=== PATIENT | male | born 1950 | race Caucasian/White ===

== ENCOUNTER 2017-02-19 16:20 | Emergency (ER) | payer MEDICARE ==
[~2017-02-19] VITALS: Ht 188 cm; Wt 113.5 kg
[~2017-02-19 16:20] MED LIST: ASPI325T PO; FOLI400T30 PO; GLUC10TA3 PO; LISI-587 PO; SIMV40TA PO; VITA10002 PO; VITA200017 PO
[2017-02-19 16:22] VITALS: BP 112/80; PULSE 104; RESP 24; TEMP 98.4; O2SAT 98
[2017-02-19] MEDS ORDERED: LISI10TA PO (16:48)
[2017-02-19] MEDS ORDERED: CHOL100025 CHEW (16:48)
[2017-02-19] MEDS ORDERED: ASPI325T PO (16:48)
[2017-02-19] MEDS ORDERED: GLIP10TA6 PO (16:48)
[2017-02-19 17:09] LABS: MEAN CORPUSCULAR HGB CONC 36.5 % (32.0-36.0)
--- NOTE | 2017-02-19 17:18 | PD ---
HPI Chief Complaint: GI Complaint Time Seen by Provider: 17:01 Travel History International Travel<30 days: No Contact w/Intl Traveler<30days: No Traveled to known affect area: No History of Present Illness HPI 66-year-old male complains of fever chills or generalized malaise . Patient states that the symptoms started 2 days ago. Patient denies any headache. Patient denies any neck pain. Patient denies any chest pain or shortness of breath. Patient states that he has occasionally dry cough. Patient denies any abdominal pain. Patient denies dysuria. Patient states that he has intermittent urinary frequency. Patient denies any back pain. Patient denies any focal weakness or numbness of extremity. Patient has history of CVA in 2013. Patient has history of diabetes and hyperlipidemia. Patient on aspirin 325 mg daily. PFSH Past Medical History Cancer: No Cardiovascular Problems: Yes High Cholesterol: Yes Cerebrovascular Accident: Yes (2012) Diabetes: Yes Patient Takes Glucophage: No Diminished Hearing: No Endocrine: Yes Gastrointestinal Disorders: No Genitourinary: No Hepatitis: No Hiatal Hernia: No Hypertension: Yes Immune Disorder: No Musculoskeletal: No Neurologic: Yes (STROKE , HAS SOME SPEECH DIFFICULTY) Psychiatric: No Reproductive: No Respiratory: No Immunizations Current: No Thyroid Disease: No Tetanus Vaccination: Never Vaccinated Past Surgical History Abdominal Surgery: Yes (APPY) Appendectomy: Yes Body Medical Devices: NONE Cardiac Surgery: No Ear Surgery: No Endocrine Surgery: No Eye Surgery: No Genitourinary Surgery: No Oral Surgery: No Pacemaker: No Thoracic Surgery: No Other Surgery: Yes (3RD L FOOT TOE AMPUTATION) Social History Alcohol Use: Yes (socially ) Tobacco Use: No Substance Use: No Allergies-Medications (Allergen,Severity, Reaction): Coded Allergies: No Known Allergies (Unverified , 02/19/17) Reported Meds & Prescriptions Reported Meds & Active Scripts Active Reported Vitamin D3 (Cholecalciferol) 1,000 Unit Chew 2,000 Units CHEW DAILY Lisinopril-Hctz 10-12.5 Mg Tab 1 Tab PO DAILY Aspirin 325 Mg Tab 325 Mg PO DAILY Glipizide 10 Mg Tab 10 Mg PO BIDAC Take 30 minutes before a meal Review of Systems General / Constitutional: Positive: Fever, Chills Eyes: No: Visual changes HENT: No: Headaches Cardiovascular: No: Chest Pain or Discomfort Respiratory: No: Shortness of Breath Gastrointestinal: No: Abdominal Pain Genitourinary: No: Dysuria Musculoskeletal: No: Pain Skin: No Rash Neurologic: No: Weakness Psychiatric: No: Depression Endocrine: No: Polydipsia Hematologic/Lymphatic: No: Easy Bruising Physical Exam Narrative GENERAL: Well-nourished, well-developed patient. SKIN: Focused skin assessment warm/dry. HEAD: Normocephalic. EYES: No scleral icterus. No injection or drainage. NECK: Supple, trachea midline. No JVD or lymphadenopathy. CARDIOVASCULAR: Regular rate and rhythm without murmurs, gallops, or rubs. RESPIRATORY: Breath sounds equal bilaterally. No accessory muscle use. GASTROINTESTINAL: Abdomen soft, non-tender, nondistended. MUSCULOSKELETAL: No cyanosis, or edema. BACK: Nontender without obvious deformity. No CVA tenderness. Neurologic exam normal. Data Data Last Documented VS Vital Signs Date Time Temp Pulse Resp B/P Pulse Ox O2 Delivery O2 Flow Rate FiO2 02/19/17 22:13 76 20 180/88 99 02/19/17 21:38 98.2 02/19/17 17:47 Room Air Orders Electrocardiogram (02/19/17 17:07) Complete Blood Count With Diff (02/19/17 17:07) Comprehensive Metabolic Panel (02/19/17 17:07) Creatine Kinase (Cpk) (02/19/17 17:07) Troponin I (02/19/17 17:07) Prothrombin Time / Inr (Pt) (02/19/17 17:07) Act Partial Throm Time (Ptt) (02/19/17 17:07) Blood Culture (02/19/17 17:07) Urinalysis - C+S If Indicated (02/19/17 17:07) Beta Hydroxybutyrate (Acetone) (02/19/17 17:07) Influenzae A/B Antigen (02/19/17 17:07) Chest, Single Ap (02/19/17 17:07) Iv Access Insert/Monitor (02/19/17 17:07) Ecg Monitoring (02/19/17 17:07) Oximetry (02/19/17 17:07) Sodium Chlor 0.9% 1000 Ml Inj (Ns 1000 M (02/19/17 17:45) Sodium Chlorid 0.9% 500 Ml Inj (Ns 500 M (02/19/17 19:30) Cath For Specimen (02/19/17 21:23) Sodium Chlor 0.9% 1000 Ml Inj (Ns 1000 M (02/19/17 21:45) Labs Laboratory Tests Test 02/19/17 02/19/17 17:30 21:30 White Blood Count 8.7 TH/MM3 Red Blood Count 4.39 MIL/MM3 Hemoglobin 13.8 GM/DL Hematocrit 37.6 % Mean Corpuscular Volume 85.8 FL Mean Corpuscular Hemoglobin 31.3 PG Mean Corpuscular Hemoglobin 36.5 % Concent Red Cell Distribution Width 12.6 % Platelet Count 213 TH/MM3 Mean Platelet Volume 6.4 FL Neutrophils (%) (Auto) 80.2 % Lymphocytes (%) (Auto) 9.6 % Monocytes (%) (Auto) 9.7 % Eosinophils (%) (Auto) 0.0 % Basophils (%) (Auto) 0.5 % Neutrophils # (Auto) 7.0 TH/MM3 Lymphocytes # (Auto) 0.8 TH/MM3 Monocytes # (Auto) 0.8 TH/MM3 Eosinophils # (Auto) 0.0 TH/MM3 Basophils # (Auto) 0.0 TH/MM3 CBC Comment AUTO DIFF Differential Comment AUTO DIFF CONFIRMED Platelet Estimate NORMAL Platelet Morphology Comment NORMAL Prothrombin Time 14.0 SEC Prothromb Time International 1.3 RATIO Ratio Activated Partial 35.7 SEC Thromboplast Time Sodium Level 128 MEQ/L Potassium Level 3.9 MEQ/L Chloride Level 95 MEQ/L Carbon Dioxide Level 23.0 MEQ/L Anion Gap 10 MEQ/L Blood Urea Nitrogen 19 MG/DL Creatinine 1.29 MG/DL Estimat Glomerular Filtration 56 ML/MIN Rate Random Glucose 179 MG/DL Calcium Level 8.3 MG/DL Total Bilirubin 1.0 MG/DL Aspartate Amino Transf 26 U/L (AST/SGOT) Alanine Aminotransferase 30 U/L (ALT/SGPT) Alkaline Phosphatase 79 U/L Total Creatine Kinase 93 U/L Troponin I LESS THAN 0.02 NG/ML Total Protein 7.6 GM/DL Albumin 3.2 GM/DL B-Hydroxybutyrate 0.44 MMOL/L Urine Color YELLOW Urine Turbidity CLEAR Urine pH 5.5 Urine Specific [place] 1.027 Urine Protein 30 mg/dL Urine Glucose (UA) TRACE mg/dL Urine Ketones 10 mg/dL Urine Occult Blood SMALL Urine Nitrite NEG Urine Bilirubin NEG Urine Urobilinogen 2.0 MG/DL Urine Leukocyte Esterase NEG Urine RBC 1 /hpf Urine WBC 2 /hpf Urine Squamous Epithelial <1 /hpf Cells Urine Mucus FEW /lpf Microscopic Urinalysis Comment CULT NOT INDICATED MDM Medical Decision Making Medical Screen Exam Complete: Yes Emergency Medical Condition: Yes Interpretation(s) Last Impressions Chest X-Ray 02/19/17 1697 Signed Impressions: Service Date/Time: Sunday, February 19, 2017 17:19 - CONCLUSION: No acute disease. Sage Atwood MD 1924 PM. CBC WBC 8.7. Hemoglobin 13.8 hematocrit 37.6. 80 neutrophil. Sodium 128. Chloride 95. BUN 19. GFR 56. Glucose 179. Cardiac enzymes are normal. INR 1.3. Beta hydroxybutyrate 0.44. Influenza AB antigen negative. 22:31 PM. UA is negative. Differential Diagnosis Differential diagnosis including viral syndrome, pneumonia, UTI, electrolyte imbalance, sepsis. Narrative Course 66-year-old male with chills and fever and generalized malaise. Normal saline solution 1 25 cc an hour. Normal saline solution 1 L IV bolus. Diagnosis Primary Impression: Viral syndrome Additional Impressions: Dehydration Hyponatremia Patient Instructions: General Instructions Additional Instructions: Encourage by mouth fluid. Follow-up with personal physician for electrolyte check. Return if worse. Return immediately if persistent problem or worse. Med/Other Pt SpecificInfo: No Change to Meds Disposition: 01 DISCHARGE HOME Condition: Stable Yousif Collazo MD Feb 19, 2017 17:18
--- NOTE | 2017-02-19 17:19 | RADRPT ---
EXAM DATE/TIME: 02/19/2017 17:19 [facility] COMPARISON: No previous studies available for comparison. INDICATIONS : Fever MEDICAL HISTORY : Diabetes mellitus type II. Hypertension SURGICAL HISTORY : None. ENCOUNTER: Initial ACUITY: 3 days PAIN SCORE: 0/10 LOCATION: chest FINDINGS: A single view of the chest demonstrates the lungs to be symmetrically aerated without evidence of mas s, infiltrate or effusion. The cardiomediastinal contours are unremarkable. Osseous structures are intact. CONCLUSION: No acute disease. Sage Atwood MD on February 19, 2017 at 17:18 Board Certified Radiologist. This report was verified electronically.
[2017-02-19] MEDS: SODIUM CHLOR 0.9% 1000 ML INJ 1,000 ML IV SCH ×2 (17:45→21:49)
[2017-02-19 17:47] VITALS: BP 118/66; PULSE 79; RESP 22; TEMP 98.3; O2SAT 97
[2017-02-19 18:28] LABS: BASOPHIL % 0.5 % (0.0-2.0); HEMATOCRIT 37.6 % (39.0-51.0); LYMPH % 9.6 % (9.0-44.0); LYMPHOCYTE # 0.8 TH/MM3 (1.0-4.8); MEAN CELL VOLUME 85.8 FL (80.0-100.0); MEAN CORPUSCULAR HEMOGLOBIN 31.3 PG (27.0-34.0); MONO % 9.7 % (0.0-8.0); NEUT % 80.2 % (16.0-70.0); PLATELET COUNT 213 TH/MM3 (150-450); RED BLOOD COUNT 4.39 MIL/MM3 (4.50-5.90); RED CELL DISTRIBUTION WIDTH 12.6 % (11.6-17.2); WHITE BLOOD COUNT 8.7 TH/MM3 (4.0-11.0)
[2017-02-19 18:30] LABS: HEMO FLAGS AUTO DIFF
[2017-02-19 18:54] LABS: APTT (PATIENT) 35.7 SEC (24.3-30.1); INTERNATIONAL NORMALIZED RATIO 1.3 RATIO
[2017-02-19 18:57] LABS: ANION GAP 10 MEQ/L (5-15); AST (GOT) 26 U/L (15-37); BLOOD UREA NITROGEN 19 MG/DL (7-18); CHLORIDE 95 MEQ/L (98-107); GLOMERULAR FILTRATION RATE 56 ML/MIN (>89); POTASSIUM 3.9 MEQ/L (3.5-5.1); SODIUM (NA) 128 MEQ/L (136-145)
[2017-02-19 18:58] LABS: ALT (GPT) 30 U/L (12-78)
[2017-02-19 19:02] LABS: ALKALINE PHOSPHATASE 79 U/L (45-117); BETA-HYDROXYBUTYRATE 0.44 MMOL/L (0.00-0.39)
[2017-02-19 19:18] LABS: CREATINE KINASE 93 U/L (39-308)
[2017-02-19 19:23] LABS: PLATELET ESTIMATE SMEAR NORMAL (NORMAL); PLATELET MORPHOLOGY NORMAL (NORMAL); SCAN/DIFF AUTO DIFF CONFIRMED
[2017-02-19] MEDS ORDERED: SODIUM CHLORID 0.9% 500 ML INJ 500 ML IV ONE (19:30)
[2017-02-19 21:38] VITALS: BP 183/89; PULSE 71; RESP 20; TEMP 98.2; O2SAT 100
[2017-02-19] MEDS ORDERED: SODIUM CHLOR 0.9% 1000 ML INJ 1,000 ML IV ONE (21:45)
[2017-02-19 22:03] LABS: BLOOD, URINE SMALL (NEG); COMMENT (UR) CULT NOT INDICATED; CULTURE IF INDICATED CULT NOT INDICATED; GLUCOSE,URINE TRACE mg/dL (NEG); KETONE, URINE 10 mg/dL (NEG); MUCUS URINE FEW /lpf (OCC); NITRITE,URINE NEG (NEG); PH, URINE 5.5 (5.0-8.5); SQUAMOUS EPITHELIAL CELL URINE <1 /hpf (0-5); URINE COLOR YELLOW (YELLW/STRAW)
[2017-02-19 22:13] VITALS: BP 180/88; PULSE 76; RESP 20; O2SAT 99
[2017-02-19 23:08] VITALS: BP 179/85
--- NOTE | 2017-02-20 16:52 | EKG ---
Date Performed: 02/19/2017 Time Performed: 17:19:29 PTAGE: 66 years EKG: Sinus rhythm PATTERN CONSISTENT WITH PULMONARY DISEASE LEFT ANTERIOR FASCICULAR BLOCK ABNORMAL ECG WARNING: DATA QUALITY MAY AFFECT INTERPRETATION PREVIOUS TRACING 09/26/2014 @ 11.55.28 Compared to prior tracing no significant change DOCTOR: Humberto Renae Interpretating Date/Time 02/20/2017 16:50:13
== END 2017-02-20 03:41 | disposition home or self-care (01) ==
LOC: NEPD 16:20
DX: B34.9 Viral infection, unspecified (principal); E86.0 Dehydration; E87.1 Hypo-osmolality and hyponatremia; E11.9 Type 2 diabetes mellitus without complications; I10 Essential (primary) hypertension; R35.0 Frequency of micturition; R94.31 Abnormal electrocardiogram [ECG] [EKG]; Z79.84 Long term (current) use of oral hypoglycemic drugs; Z79.899 Other long term (current) drug therapy
CPT/HCPCS: 71010; 80053; 81001; 82010; 82550; 84484; 85025; 85610; 85730; 87040; 87804; 93005; 96360; 96361; 99285; J7030; J7040; P9612

== ENCOUNTER 2017-03-21 13:06 | Inpatient (IN) | payer MEDICARE ==
[~2017-03-21] VITALS: Ht 188 cm; Wt 104.0 kg
[~2017-03-21 13:06] MED LIST changes: +CHOL100025 CHEW; -FOLI400T30 PO; +GLIP10TA6 PO; -GLUC10TA3 PO; -LISI-587 PO; +LISI10TA PO; -SIMV40TA PO; -VITA10002 PO; -VITA200017 PO
[2017-03-21 13:10] VITALS: BP 123/73; PULSE 99; RESP 17; TEMP 98.4; O2SAT 99
[2017-03-21] MEDS ORDERED: PIPERACIL-TAZO 4.5 GM PREMIX 100 ML IV STA (17:15)
[2017-03-21] MEDS ORDERED: SODIUM CHLOR 0.9% 1000 ML INJ 1,000 ML IV ONE (17:15)
[2017-03-21] MEDS ORDERED: VANCOMYCIN INJ 1,000 MG in SODIUM CHLOR 0.9% 250 ML INJ 250 ML IV STA (17:15)
[2017-03-21 17:29] VITALS: BP 137/89; PULSE 103; RESP 20; TEMP 98.7; O2SAT 98
--- NOTE | 2017-03-21 17:29 | RADRPT ---
EXAM DATE/TIME: 03/21/2017 17:29 [facility] COMPARISON: CHEST SINGLE AP, February 19, 2017, 17:19. INDICATIONS : Cough. MEDICAL HISTORY : Diabetes mellitus type II. Stroke. SURGICAL HISTORY : None. ENCOUNTER: Initial ACUITY: 1 day PAIN SCORE: 0/10 LOCATION: Bilateral chest FINDINGS: A single view of the chest demonstrates the lungs to be symmetrically aerated without evidence of mas s, infiltrate or effusion. The cardiomediastinal contours are unremarkable. Osseous structures are intact. CONCLUSION: No acute disease. There is no evidence of pneumonia. Timothy Goddard MD on March 21, 2017 at 17:27 Board Certified Radiologist. This report was verified electronically.
--- NOTE | 2017-03-21 17:42 | PD ---
HPI Chief Complaint: Medical Clearance Time Seen by Provider: 17:08 Travel History International Travel<30 days: No Contact w/Intl Traveler<30days: No Traveled to known affect area: No History of Present Illness HPI 66-year-old male came to the emergency room with history of left foot wound that is extremely foul-smelling and oozing purulent material. Patient says that he has had this foot wound for past 4 weeks and he has seen his primary care Dr. Loja but for past 2 weeks it has worsened and condition including the extent and the foul smell. Vital signs were within acceptable limits. Patient has diabetes. No history of fever or chills as per him. No pain. PFSH Past Medical History Narrative Medical List of his past medical, surgical, social and family history was reviewed from the nursing note. Hx Anticoagulant Therapy: Yes (ASA) Cancer: No Cardiovascular Problems: No High Cholesterol: Yes Chemotherapy: No Cerebrovascular Accident: Yes (2012) Diabetes: Yes Diminished Hearing: No Endocrine: Yes Gastrointestinal Disorders: No Genitourinary: No Hepatitis: No Hiatal Hernia: No Hypertension: Yes Immune Disorder: No Musculoskeletal: No Neurologic: Yes (STROKE , HAS SOME SPEECH DIFFICULTY) Psychiatric: No Reproductive: No Respiratory: No Immunizations Current: No Thyroid Disease: No ?: Not Past Surgical History Abdominal Surgery: Yes (APPY) Appendectomy: Yes Body Medical Devices: NONE Cardiac Surgery: No Ear Surgery: No Endocrine Surgery: No Eye Surgery: No Genitourinary Surgery: No Oral Surgery: No Pacemaker: No Thoracic Surgery: No Other Surgery: Yes (3RD L FOOT TOE AMPUTATION) Social History Alcohol Use: Yes (socially ) Tobacco Use: No Substance Use: No Allergies-Medications (Allergen,Severity, Reaction): Coded Allergies: No Known Allergies (Unverified , 03/21/17) Comments No known drug allergies. Reported Meds & Prescriptions Reported Meds & Active Scripts Active Reported Lisinopril-Hctz 10-12.5 Mg Tab 0.5 Tab PO DAILY Aspirin 325 Mg Tab 325 Mg PO DAILY Glipizide 10 Mg Tab 10 Mg PO BIDAC Take 30 minutes before a meal Narrative Medication List of his home medications reviewed from the nursing note. Review of Systems Except as stated in HPI: all other systems reviewed are Neg Physical Exam Narrative GENERAL: Awake, alert, moderate distress SKIN: Focused skin assessment warm/dry. Left foot shows macerated skin with intensely foul-smelling discharge and purulent oozing material from all 5 toes. The great toe seems to be in worse shape and disfigured than any of the others. The foot is swollen and erythematous. HEAD: Atraumatic. Normocephalic. EYES: Pupils equal and round. No scleral icterus. No injection or drainage. ENT: No nasal bleeding or discharge. Mucous membranes pink and moist. NECK: Trachea midline. No JVD. CARDIOVASCULAR: Regular rate and rhythm. No murmur appreciated. RESPIRATORY: No accessory muscle use. Clear to auscultation. Breath sounds equal bilaterally. GASTROINTESTINAL: Abdomen soft, non-tender, nondistended. Hepatic and splenic margins not palpable. MUSCULOSKELETAL: No obvious deformities. No clubbing. No cyanosis. No edema. NEUROLOGICAL: Awake and alert. No obvious cranial nerve deficits. Motor grossly within normal limits. Normal speech. PSYCHIATRIC: Appropriate mood and affect; insight and judgment normal. Data Data Last Documented VS Orders Orders Complete Blood Count With Diff (03/21/17 17:15) Comprehensive Metabolic Panel (03/21/17 17:15) Lactic Acid Sepsis Protocol (03/21/17 17:15) Urinalysis - C+S If Indicated (03/21/17 17:15) Blood Culture (03/21/17 17:15) Chest, Single Ap (03/21/17 17:15) Blood Glucose (03/21/17 17:15) Ecg Monitoring (03/21/17 17:15) Iv Access Insert/Monitor (03/21/17 17:15) Oximetry (03/21/17 17:15) Oxygen Administration (03/21/17 17:15) Piperacil-Tazo 4.5 Gm Premix (Zosyn 4.5 (03/21/17 17:15) Vancomycin Inj (Vancomycin Inj) (03/21/17 17:15) Sodium Chlor 0.9% 1000 Ml Inj (Ns 1000 M (03/21/17 17:15) Cta Runoff W Iv Contrast W 3d (03/21/17 ) Wound Culture And Gram Stain (03/21/17 17:45) Foot, Complete ([id number]) (03/21/17 ) Sodium Chlorid 0.9% 500 Ml Inj (Ns 500 M (03/21/17 20:15) Insulin Human Regular Inj (Novolin R Inj (03/21/17 20:15) Admit Order (Ed Use Only) (03/21/17 ) Labs Laboratory Tests Test 03/21/17 05:54 03/21/17 17:40 03/21/17 18:45 Hemoglobin A1c 8.4 % White Blood Count 17.7 TH/MM3 Red Blood Count 4.03 MIL/MM3 Hemoglobin 11.7 GM/DL Hematocrit 34.1 % Mean Corpuscular Volume 84.4 FL Mean Corpuscular Hemoglobin 29.1 PG Mean Corpuscular Hemoglobin Concent 34.4 % Red Cell Distribution Width 13.5 % Platelet Count 319 TH/MM3 Mean Platelet Volume 7.0 FL Neutrophils (%) (Auto) 85.0 % Lymphocytes (%) (Auto) 6.8 % Monocytes (%) (Auto) 7.7 % Eosinophils (%) (Auto) 0.1 % Basophils (%) (Auto) 0.4 % Neutrophils # (Auto) 15.1 TH/MM3 Lymphocytes # (Auto) 1.2 TH/MM3 Monocytes # (Auto) 1.4 TH/MM3 Eosinophils # (Auto) 0.0 TH/MM3 Basophils # (Auto) 0.1 TH/MM3 CBC Comment DIFF FINAL Differential Comment Blood Urea Nitrogen 24 MG/DL Creatinine 1.19 MG/DL Random Glucose 374 MG/DL Total Protein 8.0 GM/DL Albumin 2.4 GM/DL Calcium Level 8.7 MG/DL Alkaline Phosphatase 150 U/L Aspartate Amino Transf (AST/SGOT) 56 U/L Alanine Aminotransferase (ALT/SGPT) 66 U/L Total Bilirubin 1.1 MG/DL Sodium Level 119 MEQ/L Potassium Level 4.6 MEQ/L Chloride Level 86 MEQ/L Carbon Dioxide Level 20.2 MEQ/L Anion Gap 13 MEQ/L Estimat Glomerular Filtration Rate 62 ML/MIN Lactic Acid Level 2.8 mmol/L Urine Color YELLOW Urine Turbidity CLEAR Urine pH 5.5 Urine Specific [place] 1.029 Urine Protein TRACE mg/dL Urine Glucose (UA) 1000 mg/dL Urine Ketones NEG mg/dL Urine Occult Blood MOD Urine Nitrite NEG Urine Bilirubin NEG Urine Urobilinogen 4.0 MG/DL Urine Leukocyte Esterase NEG Urine RBC 3 /hpf Urine WBC 3 /hpf Urine Squamous Epithelial Cells 1 /hpf Urine Hyaline Casts 3 /lpf Microscopic Urinalysis Comment CATH-CULT NOT IND MDM Medical Decision Making Medical Screen Exam Complete: Yes Emergency Medical Condition: Yes Medical Record Reviewed: Yes Differential Diagnosis Osteomyelitis, wet gangrene, gas gangrene Narrative Course 6:40 PM given the clinical impression off the significant infection, very high probability of osteomyelitis and gangrene I discussed the case with the on-call jackhammer operator Dr. Gallego. He recommended to admit the patient medically and he would see the patient in the morning for possible foot amputation. Meanwhile I am waiting for the blood test result. Patient was given IV vancomycin and Zosyn. I have also ordered a CT angiogram of the lower extremity with runoff's. 7:15 PM CBC shows elevated white blood cell count and lactic acid is elevated. Chemistry still pending and based on the renal function CT angiogram of the lower extremity. Patient will need to be admitted. I signed the Case over to the oncoming ER physician. Critical Care Narrative Aggregate critical care time was 30 minutes. Time to perform other separately billable procedures was not included in the critical care time. My time did not include minutes spent treating any other patients simultaneously or on activities that did not directly contribute to the patient's treatment. The services I provided to this patient were to treat and/or prevent clinically significant deterioration that could result in: Sepsis, sepsis protocol I provided critical care services requiring my management, as noted below: Chart data review, documentation time, medication orders and management, vital sign assessments/reviewing monitor data, ordering and reviewing lab tests, ordering and interpreting/reviewing x-rays and diagnostic studies, care of the patient and discussion of the patient with the admitting physicians. Procedures EKG Prior to Arrival: No Physician Communication Physician Communication Dr. Gallego Scripts Lisinopril (Lisinopril) 2.5 Mg Tab 2.5 MG PO DAILY, #30 TAB 0 Refills Prov: Zac Sharpe MD 03/25/17 Nifedipine ER 24 HR (Nifedipine ER 24 HR) 30 Mg Tab 30 MG PO DAILY for Blood Pressure Management, #30 TAB 0 Refills Prov: Zac Sharpe MD 03/25/17 Insulin Aspart Inj (Novolog Inj) 100 Unit/Ml Inj 1 INJECTION SQ ACHS SLIDING SCALE for Blood Sugar Management for 30 Days, INJECTION Prov: Zac Sharpe MD 03/25/17 Insulin Detemir Inj (Levemir Inj) 1,000 unit/ 10 ML Vial 10 UNITS SQ Q12HR for Blood Sugar Management for 30 Days, INJECTION Do not mix with any other Insulin. Prov: Zac Sharpe MD 03/25/17 Abbie Null MD Mar 21, 2017 17:42
--- NOTE | 2017-03-21 18:11 | RADRPT ---
EXAM DATE/TIME: 03/21/2017 17:45 [facility] COMPARISON: No previous studies available for comparison. INDICATIONS : Left foot pain, diabetic foot, open wounds. MEDICAL HISTORY : Diabetes mellitus type II. Stroke. SURGICAL HISTORY : None. ENCOUNTER: Initial ACUITY: 2 weeks PAIN SCORE: 10/10 LOCATION: Left foot. FINDINGS: The great toe soft tissues are markedly swollen. There is destruction of the entire distal phalanx an d the distal two thirds of the proximal phalanx. A mid shaft fracture is seen of the proximal phalanx with medial angulation deformity and potentially with some bone extending through the skin. There ar e numerous soft tissue ulcers. Ulceration near the base of the great toe probably extends down to the medial margin of the first metatarsal head. However, I don't see metatarsal destruction. No other acute bone destruction demonstrated. Patient has had previous amputation of the third toe at the level of the mid metatarsal. CONCLUSION: Osteomyelitis of the proximal and distal phalanges of the great toe with marked soft tissue swelling and ulceration. Pathologic midshaft fracture with medial angulation deformity of the proximal phalanx . Julius Pedraza MD on March 21, 2017 at 18:08 Board Certified Radiologist. This report was verified electronically.
[2017-03-21 18:46] LABS: AUTOMATED NEUTROPHIL # 15.1 TH/MM3 (1.8-7.7); BASOPHIL # 0.1 TH/MM3 (0-0.2); BASOPHIL % 0.4 % (0.0-2.0); EOSINOPHIL % 0.1 % (0.0-4.0); HEMATOCRIT 34.1 % (39.0-51.0); HEMO FLAGS DIFF FINAL; LYMPH % 6.8 % (9.0-44.0); LYMPHOCYTE # 1.2 TH/MM3 (1.0-4.8); MEAN CELL VOLUME 84.4 FL (80.0-100.0); MEAN CORPUSCULAR HEMOGLOBIN 29.1 PG (27.0-34.0); MEAN CORPUSCULAR HGB CONC 34.4 % (32.0-36.0); MONO % 7.7 % (0.0-8.0); PLATELET COUNT 319 TH/MM3 (150-450); RED BLOOD COUNT 4.03 MIL/MM3 (4.50-5.90); RED CELL DISTRIBUTION WIDTH 13.5 % (11.6-17.2); WHITE BLOOD COUNT 17.7 TH/MM3 (4.0-11.0)
[2017-03-21 18:49] VITALS: O2SAT 99
[2017-03-21 19:15] VITALS: BP 119/74; PULSE 98; RESP 18; O2SAT 99
[2017-03-21 19:20] LABS: ALT (GPT) 66 U/L (12-78); AST (GOT) 56 U/L (15-37); TOTAL BILIRUBIN ADULT 1.1 MG/DL (0.2-1.0)
[2017-03-21 19:21] LABS: ALKALINE PHOSPHATASE 150 U/L (45-117); ANION GAP 13 MEQ/L (5-15); BICARBONATE 20.2 MEQ/L (21.0-32.0); BLOOD UREA NITROGEN 24 MG/DL (7-18); CHLORIDE 86 MEQ/L (98-107); GLOMERULAR FILTRATION RATE 62 ML/MIN (>89); POTASSIUM 4.6 MEQ/L (3.5-5.1)
[2017-03-21 19:27] LABS: BLOOD, URINE MOD (NEG); GLUCOSE,URINE 1000 mg/dL (NEG); HYALINE CAST, URINE 3 /lpf (RARE); KETONE, URINE NEG (NEG); NITRITE,URINE NEG (NEG); PH, URINE 5.5 (5.0-8.5); SQUAMOUS EPITHELIAL CELL URINE 1 /hpf (0-5); URINE COLOR YELLOW (YELLW/STRAW)
[2017-03-21 19:28] LABS: SODIUM (NA) 119 MEQ/L (136-145)
[2017-03-21 19:28] LABS: COMMENT (UR) CATH-CULT NOT IND; CULTURE IF INDICATED CATH CULTURE NOT IND
--- NOTE | 2017-03-21 20:08 | PD ---
Physical Exam Narrative Patient signed out to me by Dr. Null. Please see her documentation for complete details. Briefly, patient has history of diabetes and has a severe infection of his left foot. He is not complaining of any pain, he says he has neuropathy from the diabetes. Exam shows large edema of the left foot with erythema, oozing of pus. Data Data Last Documented VS Vital Signs Date Time Temp Pulse Resp B/P (MAP) Pulse Ox O2 Delivery O2 Flow Rate FiO2 03/21/17 19:15 98 18 119/74 (89) 99 Room Air 03/21/17 17:29 98.7 Orders Orders Complete Blood Count With Diff (03/21/17 17:15) Comprehensive Metabolic Panel (03/21/17 17:15) Lactic Acid Sepsis Protocol (03/21/17 17:15) Urinalysis - C+S If Indicated (03/21/17 17:15) Blood Culture (03/21/17 17:15) Chest, Single Ap (03/21/17 17:15) Blood Glucose (03/21/17 17:15) Ecg Monitoring (03/21/17 17:15) Iv Access Insert/Monitor (03/21/17 17:15) Oximetry (03/21/17 17:15) Oxygen Administration (03/21/17 17:15) Piperacil-Tazo 4.5 Gm Premix (Zosyn 4.5 (03/21/17 17:15) Vancomycin Inj (Vancomycin Inj) (03/21/17 17:15) Sodium Chlor 0.9% 1000 Ml Inj (Ns 1000 M (03/21/17 17:15) Cta Runoff W Iv Contrast W 3d (03/21/17 ) Wound Culture And Gram Stain (03/21/17 17:45) Foot, Complete ([id number]) (03/21/17 ) Labs Laboratory Tests Test 03/21/17 17:40 03/21/17 18:45 White Blood Count 17.7 TH/MM3 Red Blood Count 4.03 MIL/MM3 Hemoglobin 11.7 GM/DL Hematocrit 34.1 % Mean Corpuscular Volume 84.4 FL Mean Corpuscular Hemoglobin 29.1 PG Mean Corpuscular Hemoglobin Concent 34.4 % Red Cell Distribution Width 13.5 % Platelet Count 319 TH/MM3 Mean Platelet Volume 7.0 FL Neutrophils (%) (Auto) 85.0 % Lymphocytes (%) (Auto) 6.8 % Monocytes (%) (Auto) 7.7 % Eosinophils (%) (Auto) 0.1 % Basophils (%) (Auto) 0.4 % Neutrophils # (Auto) 15.1 TH/MM3 Lymphocytes # (Auto) 1.2 TH/MM3 Monocytes # (Auto) 1.4 TH/MM3 Eosinophils # (Auto) 0.0 TH/MM3 Basophils # (Auto) 0.1 TH/MM3 CBC Comment DIFF FINAL Differential Comment Blood Urea Nitrogen 24 MG/DL Creatinine 1.19 MG/DL Random Glucose 374 MG/DL Total Protein 8.0 GM/DL Albumin 2.4 GM/DL Calcium Level 8.7 MG/DL Alkaline Phosphatase 150 U/L Aspartate Amino Transf (AST/SGOT) 56 U/L Alanine Aminotransferase (ALT/SGPT) 66 U/L Total Bilirubin 1.1 MG/DL Sodium Level 119 MEQ/L Potassium Level 4.6 MEQ/L Chloride Level 86 MEQ/L Carbon Dioxide Level 20.2 MEQ/L Anion Gap 13 MEQ/L Estimat Glomerular Filtration Rate 62 ML/MIN Lactic Acid Level 2.8 mmol/L Urine Color YELLOW Urine Turbidity CLEAR Urine pH 5.5 Urine Specific [place] 1.029 Urine Protein TRACE mg/dL Urine Glucose (UA) 1000 mg/dL Urine Ketones NEG mg/dL Urine Occult Blood MOD Urine Nitrite NEG Urine Bilirubin NEG Urine Urobilinogen 4.0 MG/DL Urine Leukocyte Esterase NEG Urine RBC 3 /hpf Urine WBC 3 /hpf Urine Squamous Epithelial Cells 1 /hpf Urine Hyaline Casts 3 /lpf Microscopic Urinalysis Comment CATH-CULT NOT IND MDM Supervised Visit with ELIAS: No Narrative Course Labs show a white blood cell count of 17. Sodium is 119. Patient was given Zosyn and vancomycin by Dr. Null. Patient will be admitted for further management. X-ray does show evidence of osteomyelitis. He is pending CTA of his leg to check the blood vessels. Diagnosis Primary Impression: Osteomyelitis Qualified Codes: M86.8X7 - Other osteomyelitis, ankle and foot Additional Impressions: Hyperglycemia Hyponatremia Admitting Information Admitting Physician Requests: Admit Condition: Stable Basilia Nava MD Mar 21, 2017 20:08
[2017-03-21] MEDS ORDERED: INSULIN HUMAN REGULAR 1,000 UNITS/10 ML VIAL IV PUSH ONE (20:15)
[2017-03-21] MEDS ORDERED: SODIUM CHLORID 0.9% 500 ML INJ 500 ML IV ONE (20:15)
[2017-03-21 20:26] LABS: LACTIC ACID GHOST NOT REPORTABLE
[2017-03-21] MEDS ORDERED: NALOXONE HCL 0.4 MG/ML AMP IV PRN (20:30)
[2017-03-21] MEDS ORDERED: SODIUM CHLORIDE 0.9% FLUSH 10 ML FLUSH IV FLUSH PRN (20:30)
[2017-03-21] MEDS ORDERED: Vancomycin Consult Pharmacy 1 EA OTHER SCH (20:45)
[2017-03-21] MEDS: SODIUM CHLORIDE 0.9% FLUSH 10 ML FLUSH IV FLUSH SCH (21:00)
[2017-03-21] MEDS ORDERED: IOHEXOL 350 MG/ML 10 ML VIAL (for RAD DIAG) IVCONTRAST ONE (21:06)
[2017-03-21 23:00] VITALS: BP 124/76; PULSE 95; RESP 18; O2SAT 97
--- NOTE | 2017-03-21 23:19 | HHI.HP ---
[facility] Ole Loja MD Admission Diagnosis osteomyelitis, hyponatremia Diagnoses: Chief Complaint: Left great toe wound Travel History International Travel<30 Days: No Contact w/Intl Traveler <30 Da: No Traveled to Known Affected Are: No History of Present Illness 66-year-old male with a history of diabetes, hyperlipidemia, hypertension, neuropathy and CVA presented to the ED with a left foot wound for the past 2 weeks. Patient states it's been foul-smelling with purulent drainage for the last 2 weeks, he has not seen a doctor and was using [id number] antibacterial ointment, and applying a clean sock daily for treatment. He states it has been about 2 years since he has been on insulin and he has been controlled with his DM. He denies any fever or chills. He denies any pain to the foot, but states he doesn't feel much with his neuropathy. Also denies any chest pain, sob, nausea or vomiting. PCP is Dr. Loja Review of Systems Except as stated in HPI: all other systems reviewed are Neg Past Family Social History Past Medical History Diabetes Hyperlipidemia CVA 2012 Hypertension Past Surgical History Appendectomy Surgery left toe amputation Reported Medications Reported Meds & Active Scripts Active Reported Lisinopril-Hctz 10-12.5 Mg Tab 0.5 Tab PO DAILY Aspirin 325 Mg Tab 325 Mg PO DAILY Glipizide 10 Mg Tab 10 Mg PO BIDAC Take 30 minutes before a meal Allergies: Coded Allergies: No Known Allergies (Unverified , 03/21/17) Active Ordered Medications Current Medications Medications (Trade) Dose Ordered Sig/David Route Start Time Stop Time Status Last Admin (NS Flush) 2 ml UNSCH PRN IV FLUSH 03/21/17 20:30 (NS Flush) 2 ml BID IV FLUSH 03/21/17 21:00 (Narcan Inj) 0.4 mg UNSCH PRN IV 03/21/17 20:30 Pharmacy Profile Note 0 ml @ 0 mls/hr UNSCH OTHER 03/21/17 20:45 Piperacillin Sod/ Tazobactam Sod 100 ml @ 200 mls/hr Q6H IV 03/22/17 00:00 Vancomycin HCl 1250 mg/Sodium Chloride 262.5 ml @ 250 mls/hr Q12H IV 03/22/17 06:00 Miscellaneous Information SPECIFIC LAB TO BE DRAWN:[facility] DATE TO BE DRAraceli. ONCE ONCE .XX 03/23/17 05:45 03/23/17 05:46 Family History Mom: DM Social History Tobacco use: Denies Alcohol use: Quit 6 months ago Illicit drug use: Denies Physical Exam Vital Signs Vital Signs Date Time Temp Pulse Resp B/P (MAP) Pulse Ox O2 Delivery O2 Flow Rate FiO2 03/21/17 19:15 98 18 119/74 (89) 99 Room Air 03/21/17 18:49 99 Room Air 03/21/17 18:49 99 Room Air 03/21/17 17:29 98.7 103 20 137/89 (105) 98 Room Air 03/21/17 13:10 98.4 99 17 123/73 (90) 99 Physical Exam GENERAL: This is a well-nourished, well-developed patient, in no apparent distress. SKIN: Left great toe and foot with multiple necrotic areas, erythema, warmth, and purulent blood tinged drainage. Foul smelling. HEAD: Atraumatic. Normocephalic. EYES: Pupils equal round and reactive. ENT: Nose without bleeding, purulent drainage or septal hematoma. Airway patent. NECK: Trachea midline. No JVD. CARDIOVASCULAR: Regular rate and rhythm without murmurs, gallops, or rubs. Pedal pulses diminished. RESPIRATORY: Clear to auscultation. Breath sounds equal bilaterally. No wheezes , rales, or rhonchi. GASTROINTESTINAL: Abdomen soft, non-tender, nondistended. BS x 4. MUSCULOSKELETAL: Left foot and great toe with edema. No joint tenderness. No calf tenderness. NEUROLOGICAL: Awake and alert. Motor and sensory grossly within normal limits. Five out of 5 muscle strength in all muscle groups. Normal speech. Limited sensation to bilateral feet noted. Laboratory Laboratory Tests Test 03/21/17 17:40 03/21/17 18:45 03/21/17 21:27 White Blood Count 17.7 Red Blood Count 4.03 Hemoglobin 11.7 Hematocrit 34.1 Mean Corpuscular Volume 84.4 Mean Corpuscular Hemoglobin 29.1 Mean Corpuscular Hemoglobin Concent 34.4 Red Cell Distribution Width 13.5 Platelet Count 319 Mean Platelet Volume 7.0 Neutrophils (%) (Auto) 85.0 Lymphocytes (%) (Auto) 6.8 Monocytes (%) (Auto) 7.7 Eosinophils (%) (Auto) 0.1 Basophils (%) (Auto) 0.4 Neutrophils # (Auto) 15.1 Lymphocytes # (Auto) 1.2 Monocytes # (Auto) 1.4 Eosinophils # (Auto) 0.0 Basophils # (Auto) 0.1 CBC Comment DIFF FINAL Differential Comment Blood Urea Nitrogen 24 Creatinine 1.19 Random Glucose 374 Total Protein 8.0 Albumin 2.4 Calcium Level 8.7 Alkaline Phosphatase 150 Aspartate Amino Transf (AST/SGOT) 56 Alanine Aminotransferase (ALT/SGPT) 66 Total Bilirubin 1.1 Sodium Level 119 Potassium Level 4.6 Chloride Level 86 Carbon Dioxide Level 20.2 Anion Gap 13 Estimat Glomerular Filtration Rate 62 Lactic Acid Level 2.8 1.5 Urine Color YELLOW Urine Turbidity CLEAR Urine pH 5.5 Urine Specific [place] 1.029 Urine Protein TRACE Urine Glucose (UA) 1000 Urine Ketones NEG Urine Occult Blood MOD Urine Nitrite NEG Urine Bilirubin NEG Urine Urobilinogen 4.0 Urine Leukocyte Esterase NEG Urine RBC 3 Urine WBC 3 Urine Squamous Epithelial Cells 1 Urine Hyaline Casts 3 Microscopic Urinalysis Comment CATH-CULT NOT IND Date/Time Source Procedure Growth Status 03/21/17 17:45 Blood Peripheral Aerobic Blood Culture Pending Received 03/21/17 17:45 Blood Peripheral Anaerobic Blood Culture Pending Received 03/21/17 18:45 Wound Foot Gram Stain Pending Received 03/21/17 18:45 Wound Foot Wound Culture Pending Received Result Diagram: 03/21/17 1740 03/21/17 1740 Imaging Last Impressions Chest X-Ray 03/21/17 1715 Signed Impressions: Service Date/Time: Tuesday, March 21, 2017 17:29 - CONCLUSION: No acute disease. There is no evidence of pneumonia. Timothy Goddard MD Foot X-Ray 03/21/17 0000 Signed Impressions: Service Date/Time: Tuesday, March 21, 2017 17:45 - CONCLUSION: Osteomyelitis of the proximal and distal phalanges of the great toe with marked soft tissue swelling and ulceration. Pathologic midshaft fracture with medial angulation deformity of the proximal phalanx. MD Melania Car VTE Risk Assessment Caprinblair VTE Risk Assessment: Mod/High Risk (score >= 2) VTE Pharm Contraindication: surgery Caprini Risk Assessment Model Point Value = 1 Point Value = 2 Point Value = 3 Point Value = 5 Age 41-60 Minor surgery BMI > 25 kg/m2 Swollen legs Varicose veins or History of unexplained or recurrent spontaneous Oral contraceptives or hormone replacement Sepsis (< 1 month) Serious lung disease, including pneumonia (< 1 month) Abnormal pulmonary function Acute myocardial infarction Congestive heart failure (< 1 month) History of inflammatory bowel disease Medical patient at bed rest Age 61-74 Arthroscopic surgery Major open surgery (> 45 min) Laparoscopic surgery (> 45 min) Malignancy Confined to bed (> 72 hours) Immobilizing plaster cast Central venous access Age >= 75 History of VTE Family history of VTE Factor V Leiden Prothrombin [id number] Lupus anticoagulant Anticardiolipin antibodies Elevated serum homocysteine Heparin-induced thrombocytopenia Other congenital or acquired thrombophilia Stroke (< 1 month) Elective arthroplasty Hip, pelvis, or leg fracture Acute spinal cord injury (< 1 month) Prophylaxis Regimen Total Risk Factor Score Risk Level Prophylaxis Regimen 0-1 Low Early ambulation 2 Moderate Order ONE of the following: *Sequential Compression Device (SCD) *Heparin 5000 units SQ BID 3-4 Higher Order ONE of the following medications: *Heparin 5000 units SQ TID *Enoxaparin/Lovenox 40 mg SQ daily (WT < 150 kg, CrCl > 30 mL/min) *Enoxaparin/Lovenox 30 mg SQ daily (WT < 150 kg, CrCl > 10-29 mL/min) *Enoxaparin/Lovenox 30 mg SQ BID (WT < 150 kg, CrCl > 30 mL/min) AND/OR *Sequential Compression Device (SCD) 5 or more Highest Order ONE of the following medications: *Heparin 5000 units SQ TID (Preferred with Epidurals) *Enoxaparin/Lovenox 40 mg SQ daily (WT < 150 kg, CrCl > 30 mL/min) *Enoxaparin/Lovenox 30 mg SQ daily (WT < 150 kg, CrCl > 10-29 mL/min) *Enoxaparin/Lovenox 30 mg SQ BID (WT < 150 kg, CrCl > 30 mL/min) AND *Sequential Compression Device (SCD) Assessment and Plan Problem List: (1) Sepsis ICD Code: A41.9 - Sepsis, unspecified organism Status: Acute (2) Osteomyelitis ICD Code: M86.9 - Osteomyelitis, unspecified Status: Acute (3) Hyponatremia ICD Code: E87.1 - Hypo-osmolality and hyponatremia Status: Acute (4) Hyperglycemia ICD Code: R73.9 - Hyperglycemia, unspecified Status: Acute (5) HTN (hypertension) ICD Code: I10 - Essential (primary) hypertension Status: Chronic Assessment and Plan 66-year-old male with a history of diabetes, hyperlipidemia, hypertension, neuropathy and CVA 2012 presented to the ED with a left foot wound for the past 2 weeks. Sepsis with leukocytosis, wbc 17.7, HR 99, lactic 2.8, source osteomyelitis to left foot, UA negative -Antibiotics as below -lactic acid resolved to 1.5 after 1.5L NS -CBC in AM -Gentle IVF D5NS, due to NPO status -Wound culture and blood cultures pending Osteomyelitis, left great toe and foot Foot x ray reviewed and shows osteomyelitis of the proximal and distal phalanges of the great toe with marked soft tissue swelling and ulceration. Pathological midshaft fracture with medical angulation deformity of the proximal phalanx. -IV antibiotics: Vancomycin and Zosyn -CTA Runoff pending -Will order pain medication if needed, patient currently denies any pain -Consult podiatry, Dr. John will see patient in AM, NPO for possible surgery Hyperglycemia, glucose 374, suspected elevated due to infection, chronic diabetic on PO medication at home -Novolin R IV 5 units given in ED -Accu checks ordered -Hold PO home meds for now Hyponatremia, NA 119, suspected due to hypoglycemia -cont gentle IVF -Trend NA levels Hypertension, chronic, currently controlled: Resume home lisinopril/HCTZ, monitor vitals DVT prophylaxis: SCDs, hold chemical prophylaxis due to surgery Discussed Condition With Patient Physician Certification 2 Midnight Certification Type: Admission for Inpatient Services Order for Inpatient Services The services are ordered in accordance with Medicare regulations or non- Medicare payer requirements, as applicable. In the case of services not specified as inpatient-only, they are appropriately provided as inpatient services in accordance with the 2-midnight benchmark. Estimated LOS (days): 3 days is the estimated time the patient will need to remain in the hospital, assuming treatment plan goals are met and no additional complications. Post-Hospital Plan: Home Problem Qualifiers (1) Sepsis: Qualified Codes: A41.9 - Sepsis, unspecified organism (2) Osteomyelitis: Qualified Codes: M86.8X7 - Other osteomyelitis, ankle and foot Jennifer Majano Mar 21, 2017 23:19
[2017-03-21] MEDS ORDERED: GLUCAGON 1 MG/ML VIAL OTHER PRN (23:30)
[2017-03-21] MEDS ORDERED: DEXT 5%-NACL 0.9% 1000 ML INJ 1,000 ML IV SCH (23:30)
[2017-03-21] MEDS ORDERED: DEXTROSE 50% IN WATER 50 ML VIAL(D50) IV PRN (23:30)
[2017-03-22] VITALS (7 sets, daily range): BP systolic 129–156; BP diastolic 71–97; PULSE 67–84; RESP 17–20; TEMP 95.7–97.3; O2SAT 93–97
[2017-03-22] MEDS ORDERED: DEXT 5%-NACL 0.45% 1000 ML INJ 1,000 ML IV SCH
[2017-03-22] MEDS: PIPERACIL-TAZO 4.5 GM PREMIX 100 ML IV SCH ×4 (05:24→17:05)
[2017-03-22] MEDS: VANCOMYCIN INJ 1,250 MG in SODIUM CHLOR 0.9% 250 ML INJ 250 ML IV SCH ×2 (05:25→20:38)
[2017-03-22] MEDS ORDERED: INSULIN HUMAN REGULAR 1,000 UNITS/10 ML VIAL IV PUSH ONE ×2 (06:30→13:00)
[2017-03-22 06:47] LABS: AUTOMATED NEUTROPHIL # 8.7 TH/MM3 (1.8-7.7); BASOPHIL % 0.3 % (0.0-2.0); EOSINOPHIL # 0.1 TH/MM3 (0-0.4); EOSINOPHIL % 0.6 % (0.0-4.0); HEMATOCRIT 29.3 % (39.0-51.0); HEMO FLAGS DIFF FINAL; LYMPH % 9.7 % (9.0-44.0); MEAN CELL VOLUME 83.5 FL (80.0-100.0); MEAN CORPUSCULAR HGB CONC 34.7 % (32.0-36.0); MONO % 7.3 % (0.0-8.0); NEUT % 82.1 % (16.0-70.0); PLATELET COUNT 267 TH/MM3 (150-450); RED BLOOD COUNT 3.51 MIL/MM3 (4.50-5.90); RED CELL DISTRIBUTION WIDTH 13.4 % (11.6-17.2); WHITE BLOOD COUNT 10.6 TH/MM3 (4.0-11.0)
[2017-03-22 07:03] LABS: BICARBONATE 21.2 MEQ/L (21.0-32.0); POTASSIUM 3.5 MEQ/L (3.5-5.1)
--- NOTE | 2017-03-22 08:06 | RADRPT ---
EXAM DATE/TIME: 03/21/2017 20:57 [facility] COMPARISON: No previous studies available for comparison. INDICATIONS : Left foot infection. Frequent falls. IV CONTRAST: 99 cc Omnipaque 350 (iohexol) IV RADIATION DOSE: 12.54 CTDIvol (mGy) MEDICAL HISTORY : Diabetes mellitus type 2. Hypertension. SURGICAL HISTORY : Appendectomy. 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 ENCOUNTER: Initial ACUITY: 1 month PAIN SCALE: 6/10 LOCATION: Left foot TECHNIQUE: Volumetric scanning was performed using a multi-row detector CT scanner. The data was post processed with a variety of visualization algorithms including full volume maximum intensity pr ojection, multi-planar sliding thin slab reformation, curved planar reformation, and surface renderin g techniques. Using automated exposure control and adjustment of the mA and/or kV according to patie nt size, radiation dose was kept as low as reasonably achievable to obtain optimal diagnostic quality images. DICOM format image data is available electronically for review and comparison. FINDINGS: AORTA: Minimal atherosclerotic calcifications of the abdominal aorta. No significant flow-limitin g stenosis or aneurysm. VISCERAL ARTERIES: Single bilateral renal arteries which are patent. Patent celiac, SMA, and QUYNH. RIGHT LEG: INFLOW: Bilateral scattered calcifications of the common iliac origin with mild stenosis. Common and external iliac arteries are otherwise patent. Internal iliac arteries patent. Common femoral emerson ry is patent. OUTFLOW: Profunda is patent. Diffuse atherosclerotic ossifications of the mid to distal SFA witho ut significant flow-limiting stenosis. Suboptimal opacification of the popliteal artery which appears patent in its visualized portions on the second phase axial imaging. No significant profunda or SFA collaterals in the distal thigh. RUNOFF: Runoff vessels are heavily and diffusely calcified. The anterior tibial artery is not vis ualized on the proximal calf. Peroneal and posterior tibial arteries are demonstrated to the mid to d istal calf. More distally, no significant flow is demonstrated. LEFT LEG: INFLOW: Bilateral scrotal calcifications at the origin of the left common iliac artery without fl ow-limiting stenosis. Iliac arteries are otherwise patent. Common femoral artery is patent. OUTFLOW: Profunda is patent. Mild diffuse episodic calcifications of the SFA without significant focal flow-limiting stenosis. Mild eccentric stenosis of the popliteal artery at the level of the kne e joint. Popliteal artery is otherwise patent. RUNOFF: Diffusely calcified runoff vessels. Anterior tibial artery is diffusely diseased with hull dem severe stenoses in the proximal to mid calf. Flow however does extend to the dorsal arch. There i s focal moderate stenosis of the posterior tibial artery in the proximal calf and focal severe stenos is in the distal calf. Peroneal artery is patent. GENERAL FINDINGS: Visualized lung bases are clear. Evaluation of the abdominal viscera is limited due to arterial phase technique. Liver, spleen, adrenal glands, gallbladder, and pancreas are grossly unremarkable. Kidney s demonstrate symmetrical enhancement without evidence for radiopaque renal calculi or hydronephrosis . No significant renal mass. Mild sigmoid diverticulosis. The bowel otherwise appears unremarkable wi thout evidence for obstruction. No significant free fluid or drainable fluid collection. Bladder is mildly distended but otherwise unremarkable. Prostate and seminal vesicles are within norm al limits. Reactive left inguinal lymph nodes. Diffuse soft tissue edema and skin thickening in the distal calf with extensive soft tissue changes i n the proximal forefoot. Subcutaneous emphysema and erosive bony changes involving the first left dig it consistent with cellulitis/osteoarthritis. CONCLUSION: 1. No significant aortic occlusive disease or iliac inflow stenosis. 2. No significant outflow stenosis although evaluation of the right popliteal artery is somewhat limi katelyn due to significantly diminished runoff. 3. Diffusely calcified right lower extremity runoff vessels with likely occluded anterior tibial emerson ry in the proximal calf. The peroneal and posterior tibial arteries are not visualized beyond the mid calf. 4. Diffusely calcified left lower extremity runoff vessels. Anterior tibial artery is diffusely disea sed in the proximal to mid calf. Posterior tibial artery is the dominant runoff vessel on the left. T here are tandem moderate proximal and severe distal focal posterior tibial artery stenosis. 5. Extensive cellulitis of the left forefoot and osteomyelitis involving the left great toe. 6. Mild sigmoid diverticulosis. Chaitanya Parra MD on March 22, 2017 at 7:33 Board Certified Radiologist. This report was verified electronically.
--- NOTE | 2017-03-22 08:54 | PD.POD.CON ---
Patient Intake Chief Complaint Diabetes with severe PVD and osteomyelitis and infection left foot Consult Requested by ED physician Reason for Consult Evaluation for possible treatment Primary Care Physician Ole Loja MD History of Present Illness Patient is a 66-year-old diabetic male who presented to the emergency department last evening with a foul-smelling left foot. Patient has gangrenous changes of the first toe with active abscess and infection. Ordered CTA which shows no distal runoff. Radiographs show osteomyelitis of the hallux. Patient had a third toe on the left foot amputated approximately 7 years ago. His primary care physician has had him put an antibacterial cream on the toe in clinic change his socks daily. Coded Allergies: No Known Allergies (Unverified , 03/21/17) Preferred Language to Discuss: [place] Barriers to Learning: Cognitive/Verbal Teaching Method: Discussion Vital Signs Date Time Temp Pulse Resp B/P (MAP) Pulse Ox O2 Delivery O2 Flow Rate FiO2 03/22/17 08:00 97.3 81 17 129/82 (98) 97 03/22/17 04:00 96.8 79 20 153/80 (104) 97 03/22/17 00:00 96.8 84 20 133/71 (91) 95 03/21/17 23:32 03/21/17 23:00 95 18 124/76 (92) 97 Room Air 03/21/17 19:15 98 18 119/74 (89) 99 Room Air 03/21/17 18:49 99 Room Air 03/21/17 18:49 99 Room Air 03/21/17 17:29 98.7 103 20 137/89 (105) 98 Room Air 03/21/17 13:10 98.4 99 17 123/73 (90) 99 Pain scale used: 0-10 numeric scale Pain score: 0 Medications Current Medications Piperacillin Sod/ Tazobactam Sod 100 ml @ 200 mls/hr ONCE STAT IV Last administered on 03/21/17 18:34; Start 03/21/17 at 17:15; Stop 03/21/17 at 17:44 ; Status DC Vancomycin HCl 1000 mg/Sodium Chloride 250 ml @ 250 mls/hr ONCE STAT IV Last administered on 03/21/17 18:54; Start 03/21/17 at 17:15; Stop 03/21/17 at 18:14 ; Status DC Sodium Chloride 1,000 ml @ 999 mls/hr BOLUS ONCE IV Last administered on 03/21 18:34; Start 03/21/17 at 17:15; Stop 03/21/17 at 18:15; Status DC Sodium Chloride 500 ml @ 500 mls/hr BOLUS ONCE IV Last administered on 21:30; Start 03/21/17 at 20:15; Stop 03/21/17 at 21:14; Status DC Insulin Human Regular (NovoLIN R INJ) 5 units ONCE ONCE IV PUSH Last administered on 03/21/17 21:30; Start 03/21/17 at 20:15; Stop 03/21/17 at 20:16 ; Status DC Sodium Chloride (NS Flush) 2 ml UNSCH PRN IV FLUSH FLUSH AFTER USING IV ACCESS ; Start 03/21/17 at 20:30 Sodium Chloride (NS Flush) 2 ml BID IV FLUSH ; Start 03/21/17 at 21:00 Naloxone HCl (Narcan Inj) 0.4 mg UNSCH PRN IV SEE LABEL COMMENTS; Start at 20:30 Pharmacy Profile Note 0 ml @ 0 mls/hr UNSCH OTHER ; Start 03/21/17 at 20:45 Piperacillin Sod/ Tazobactam Sod 100 ml @ 200 mls/hr Q6H IV Last administered on 03/22/17 05:24; Start 03/22/17 at 00:00 Iohexol (Omnipaque 350 Inj) 99 ml STK-MED ONCE IVCONTRAST ; Start 03/21/17 at 21 :06; Stop 03/21/17 at 21:07; Status DC Vancomycin HCl 1250 mg/Sodium Chloride 262.5 ml @ 250 mls/hr Q12H IV Last administered on 03/22/17 05:25; Start 03/22/17 at 06:00 Miscellaneous Information SPECIFIC LAB TO BE DRAWN:VANCO TROUGH DATE TO BE DRKarely.. ONCE ONCE .XX ; Start 03/23/17 at 05:45; Stop 03/23/17 at 05:46 Dextrose (D50w (Vial) Inj) 50 ml UNSCH PRN IV HYPOGLYCEMIA-SEE COMMENTS; Start 03/21/17 at 23:30 Glucagon (Glucagon Inj) 1 mg UNSCH PRN OTHER HYPOGLYCEMIA-SEE COMMENTS; Start 03/21/17 at 23:30 Dextrose/Sodium Chloride 1,000 ml @ 42 mls/hr [id number] IV ; Start 03/21/17 at 23 :30; Stop 03/21/17 at 23:55; Status DC Non-Formulary Medication 0.5 tab DAILY PO ; Start 03/22/17 at 09:00; Status Cancel Aspirin (Aspirin) 325 mg DAILY PO ; Start 03/23/17 at 09:00 Dextrose/Sodium Chloride 1,000 ml @ 42 mls/hr [id number] IV Last administered on 03/22/17t 00:28; Start 03/22/17 at 00:00; Stop 03/22/17 at 08:10; Status DC Lisinopril (Prinivil) 5 mg DAILY PO ; Start 03/22/17 at 09:00 Hydrochlorothiazide (Hydrodiuril) 6.25 mg DAILY PO ; Start 03/22/17 at 09:00 Insulin Human Regular (NovoLIN R INJ) 10 units ONCE ONCE IV PUSH Last administered on 03/22/17 06:44; Start 03/22/17 at 06:30; Stop 03/22/17 at 06:31 ; Status DC Potassium Chloride/Sodium Chloride 1,000 ml @ 70 mls/hr [id number] IV ; Start at 08:15 Past, Family & Social History Past Medical History PFSH Reviewed: Yes Endocrine: REPORTS HX OF: Diabetes mellitus Cardiovascular: REPORTS HX OF: Hyperlipidemia, Hypertension, Peripheral vascular dz Integumentary: REPORTS HX OF: Other integumentary hx Neurologic: REPORTS HX OF: Peripheral neuropathy, Stroke Past Surgical History Gastrointestinal: REPORTS HX OF: Appendectomy Musculoskeletal: REPORTS HX OF: Other musculoskeletal srg (third toe left foot amputation) Review of Systems Musculoskeletal: COMPLAINS OF: Deformaties Neurological: COMPLAINS OF: Numbness/tingling, Changes in sensation Exam-Podiatry Constitutional General appearance: comfortable Nutritional status: overweight Dermatological Exam Skin Temp - Right: Within Normal Limits Skin Texture - Right: Within Normal Limits Skin Elasticity - Right: Within Normal Limits Skin Tugor - Right: Within Normal Limits Hair Growth - Right: Within Normal Limits Pigmentation - Right: Within Normal Limits Skin Temp - Left: Hot Skin Texture - Left: Abnormal Skin Elasticity - Left: Abnormal Skin Tugor - Left: Abnormal Hair Growth - Left: Absent Pigmentation - Left: Abnormal Present on left: Abscess Ulcers: Location/Measurements There is breakdown of the first MPJ with swelling and drainage with foul smelling purulence of the left foot. More than likely patient has an abscess in the area. Vascular/Lymphatic Exam R Dorsails Pedis: Absent L Dorsails Pedis: Absent R Posterior Tibial: Palpable L Posterior Tibial: Absent Neurologic Exam Present on right: Tingling, Paraesthesia Present on left: Tingling, Paraesthesia Joint Instability Details Amputated third toe left foot Lab and Radiology Results Laboratory Laboratory Tests Test 03/21/17 17:40 03/22/17 05:54 White Blood Count 17.7 TH/MM3 10.6 TH/MM3 Red Blood Count 4.03 MIL/MM3 3.51 MIL/MM3 Hemoglobin 11.7 GM/DL 10.2 GM/DL Hematocrit 34.1 % 29.3 % Mean Corpuscular Volume 84.4 FL 83.5 FL Mean Corpuscular Hemoglobin 29.1 PG 29.0 PG Mean Corpuscular Hemoglobin Concent 34.4 % 34.7 % Red Cell Distribution Width 13.5 % 13.4 % Platelet Count 319 TH/MM3 267 TH/MM3 Mean Platelet Volume 7.0 FL 6.6 FL Neutrophils (%) (Auto) 85.0 % 82.1 % Lymphocytes (%) (Auto) 6.8 % 9.7 % Monocytes (%) (Auto) 7.7 % 7.3 % Eosinophils (%) (Auto) 0.1 % 0.6 % Basophils (%) (Auto) 0.4 % 0.3 % Neutrophils # (Auto) 15.1 TH/MM3 8.7 TH/MM3 Lymphocytes # (Auto) 1.2 TH/MM3 1.0 TH/MM3 Monocytes # (Auto) 1.4 TH/MM3 0.8 TH/MM3 Eosinophils # (Auto) 0.0 TH/MM3 0.1 TH/MM3 Basophils # (Auto) 0.1 TH/MM3 0.0 TH/MM3 CBC Comment DIFF FINAL DIFF FINAL Differential Comment Laboratory Tests Test 03/21/17 05:54 03/21/17 17:40 03/21/17 21:27 03/22/17 05:54 Blood Urea Nitrogen 24 MG/DL 18 MG/DL Creatinine 1.19 MG/DL 1.03 MG/DL Random Glucose 374 MG/DL 392 MG/DL Total Protein 8.0 GM/DL Albumin 2.4 GM/DL Calcium Level 8.7 MG/DL 7.8 MG/DL Alkaline Phosphatase 150 U/L Aspartate Amino Transf (AST/SGOT) 56 U/L Alanine Aminotransferase (ALT/SGPT) 66 U/L Total Bilirubin 1.1 MG/DL Sodium Level 119 MEQ/L 128 MEQ/L Potassium Level 4.6 MEQ/L 3.5 MEQ/L Chloride Level 86 MEQ/L 95 MEQ/L Carbon Dioxide Level 20.2 MEQ/L 21.2 MEQ/L Anion Gap 13 MEQ/L 12 MEQ/L Estimat Glomerular Filtration Rate 62 ML/MIN 73 ML/MIN Lactic Acid Level 2.8 mmol/L 1.5 mmol/L Microbiology Date/Time Source Procedure Growth Status 03/21/17 17:45 Blood Peripheral Aerobic Blood Culture Pending Received 03/21/17 17:45 Blood Peripheral Anaerobic Blood Culture Pending Received 03/21/17 17:40 Blood Peripheral Aerobic Blood Culture Pending Received 03/21/17 17:40 Blood Peripheral Anaerobic Blood Culture Pending Received 03/21/17 18:45 Wound Foot Gram Stain - Final Resulted 03/21/17 18:45 Wound Foot Wound Culture Pending Resulted Radiology Last Impressions Chest X-Ray 03/21/17 1715 Signed Impressions: Service Date/Time: Tuesday, March 21, 2017 17:29 - CONCLUSION: No acute disease. There is no evidence of pneumonia. Timothy Goddard MD Foot X-Ray 03/21/17 0000 Signed Impressions: Service Date/Time: Tuesday, March 21, 2017 17:45 - CONCLUSION: Osteomyelitis of the proximal and distal phalanges of the great toe with marked soft tissue swelling and ulceration. Pathologic midshaft fracture with medial angulation deformity of the proximal phalanx. Julius Pedraza MD Aorta w/Runoff CTA 03/21/17 0000 Signed Impressions: Service Date/Time: Tuesday, March 21, 2017 20:57 - CONCLUSION: 1. No significant aortic occlusive disease or iliac inflow stenosis. 2. No significant outflow stenosis although evaluation of the right popliteal artery is somewhat limited due to significantly diminished runoff. 3. Diffusely calcified right lower extremity runoff vessels with likely occluded anterior tibial artery in the proximal calf. The peroneal and posterior tibial arteries are not visualized beyond the mid calf. 4. Diffusely calcified left lower extremity runoff vessels. Anterior tibial artery is diffusely diseased in the proximal to mid calf. Posterior tibial artery is the dominant runoff vessel on the left. There are tandem moderate proximal and severe distal focal posterior tibial artery stenosis. 5. Extensive cellulitis of the left forefoot and osteomyelitis involving the left great toe. 6. Mild sigmoid diverticulosis. Chaitanya Parra MD Assessment/Plan Problem List: (1) Diabetic foot ulcer Status: Acute (2) Abscess of foot Status: Acute (3) Peripheral vascular disease due to secondary diabetes Status: Chronic (4) Osteomyelitis of foot, acute Status: Acute Additional Plans & Procedures PLAN: Vascular surgery consult as soon as possible. If patient's limb is not salvageable he will require a below-knee amputation. If blood flow can be improved he will require a guillotine transmetatarsal amputation with future skin grafting. We'll await vascular surgery consult. Dry protective dressings for now. Keep patient nothing by mouth till vascular surgery sees the patient. Problem Qualifiers (1) Diabetic foot ulcer: Qualified Codes: E11.621 - Type 2 diabetes mellitus with foot ulcer; L97.424 - Non-pressure chronic ulcer of left heel and midfoot with necrosis of bone Yannick Gallego DPM Mar 22, 2017 08:54
[2017-03-22] MEDS ORDERED: NON-FORMULARY DRUG (Lisinopril-Hctz 0.5 TAB) PO SCH (09:00)
[2017-03-22] MEDS: SODIUM CHLORIDE 0.9% FLUSH 10 ML FLUSH IV FLUSH SCH ×2 (09:00→20:39)
[2017-03-22] MEDS: HYDROCHLOROTHIAZIDE 25 MG TAB PO SCH (10:23)
[2017-03-22] MEDS: LISINOPRIL 5 MG TAB PO SCH (10:23)
[2017-03-22] MEDS: NS + KCL 20 MEQ INJ 1,000 ML IV SCH ×2 (10:31→14:36)
[2017-03-22] MEDS ORDERED: PROPOFOL 200 MG/20 ML AMP IV ONE (10:43)
[2017-03-22] MEDS ORDERED: PHENYLEPHRINE HCL 10 MG/ML VIAL IV ONE (10:43)
[2017-03-22] MEDS ORDERED: NEOSTIGMINE 3 MG/3 ML SYR IV ONE (10:43)
[2017-03-22] MEDS ORDERED: ONDANSETRON HCL 4 MG/2 ML VIAL IV PUSH ONE (10:43)
--- NOTE | 2017-03-22 11:39 | PD.CAR.PN ---
CVT Progress Note Subjective/Hospital Course: 66-year-old with long-standing diabetes mellitus and related complications. Now developed gangrene of the left forefoot which has spread over several weeks and is now involving most of the foot and ankle area. Patient has cellulitis redness and purulent drainage His inflow is fairly much adequate however below the level of the knee patient has severely calcified vessels which are occluded for most part and reconstituted in several areas There is no one single vessel to go straight to the foot on either left or right side On physical examination patient has gangrene of the forefoot with cellulitis and drainage of the purulent material. Patient has several areas with crepitations around the ankle consistent with a gas in the tissues and consistent with gas gangrene. At this point patient needs emergent guillotine amputation for a developed systemic sepsis and succumbs to the same Agree with Dr. Gallego the patient needs urgent amputation. Full consult dictated Thanks Geronimo Objective: Vital Signs Date Time Temp Pulse Resp B/P (MAP) Pulse Ox O2 Delivery O2 Flow Rate FiO2 03/22/17 08:00 97.3 81 17 129/82 (98) 97 03/22/17 04:00 96.8 79 20 153/80 (104) 97 03/22/17 00:00 96.8 84 20 133/71 (91) 95 03/21/17 23:32 03/21/17 23:00 95 18 124/76 (92) 97 Room Air 03/21/17 19:15 98 18 119/74 (89) 99 Room Air 03/21/17 18:49 99 Room Air 03/21/17 18:49 99 Room Air 03/21/17 17:29 98.7 103 20 137/89 (105) 98 Room Air 03/21/17 13:10 98.4 99 17 123/73 (90) 99 Labs: Laboratory Tests Test 03/22/17 05:54 White Blood Count 10.6 TH/MM3 (4.0-11.0) Red Blood Count 3.51 MIL/MM3 (4.50-5.90) Hemoglobin 10.2 GM/DL (13.0-17.0) Hematocrit 29.3 % (39.0-51.0) Mean Corpuscular Volume 83.5 FL (80.0-100.0) Mean Corpuscular Hemoglobin 29.0 PG (27.0-34.0) Mean Corpuscular Hemoglobin Concent 34.7 % (32.0-36.0) Red Cell Distribution Width 13.4 % (11.6-17.2) Platelet Count 267 TH/MM3 (150-450) Mean Platelet Volume 6.6 FL (7.0-11.0) Neutrophils (%) (Auto) 82.1 % (16.0-70.0) Lymphocytes (%) (Auto) 9.7 % (9.0-44.0) Monocytes (%) (Auto) 7.3 % (0.0-8.0) Eosinophils (%) (Auto) 0.6 % (0.0-4.0) Basophils (%) (Auto) 0.3 % (0.0-2.0) Neutrophils # (Auto) 8.7 TH/MM3 (1.8-7.7) Lymphocytes # (Auto) 1.0 TH/MM3 (1.0-4.8) Monocytes # (Auto) 0.8 TH/MM3 (0-0.9) Eosinophils # (Auto) 0.1 TH/MM3 (0-0.4) Basophils # (Auto) 0.0 TH/MM3 (0-0.2) CBC Comment DIFF FINAL Differential Comment Blood Urea Nitrogen 18 MG/DL (7-18) Creatinine 1.03 MG/DL (0.60-1.30) Random Glucose 392 MG/DL (74-106) Calcium Level 7.8 MG/DL (8.5-10.1) Sodium Level 128 MEQ/L (136-145) Potassium Level 3.5 MEQ/L (3.5-5.1) Chloride Level 95 MEQ/L (98-107) Carbon Dioxide Level 21.2 MEQ/L (21.0-32.0) Anion Gap 12 MEQ/L (5-15) Estimat Glomerular Filtration Rate 73 ML/MIN (>89) Result Diagram: 03/22/17 0554 03/22/17 0554 Kasia Merida MD Mar 22, 2017 11:39
[2017-03-22] MEDS ORDERED: MIDAZOLAM HCL 2 MG/2 ML VIAL ONE (12:01)
[2017-03-22] MEDS ORDERED: FAMOTIDINE 20 MG/2 ML VIAL ONE (12:01)
[2017-03-22 13:59] LABS: HEMOGLOBIN A1a 1.2 %; HEMOGLOBIN A1b 2.6 %; HEMOGLOBIN LA1C 4.2 %; HEMOGLOBIN P3 7.6 %
[2017-03-22] MEDS ORDERED: DO NOT ADM ANY ANTICOAGULANT DRUGS PRN (14:00)
[2017-03-22] MEDS ORDERED: *morphine SULFATE 8 MG/ML PERIprocedure ONLY ONE (14:29)
[2017-03-22] MEDS ORDERED: GLUCAGON 1 MG/ML VIAL OTHER PRN (15:00)
[2017-03-22] MEDS ORDERED: DEXTROSE 50% IN WATER 50 ML VIAL(D50) IV PRN (15:00)
[2017-03-22] MEDS: INSULIN ASPART SUPPLEMENTAL SCALE SQ SCH ×2 (15:08→22:12)
--- NOTE | 2017-03-22 15:37 | HHI.PR ---
Subjective Remarks Follow-up left foot infection, diabetes mellitus. The patient is status post left below-knee amputation today. States that he is having some pain from the surgery. No chest pain, dyspnea, nausea, vomiting. Objective Vitals Vital Signs Date Time Temp Pulse Resp B/P (MAP) Pulse Ox O2 Delivery O2 Flow Rate FiO2 03/22/17 15:15 98.0 65 17 134/83 (100) 95 Room Air 03/22/17 15:00 66 16 137/80 (99) 94 03/22/17 14:45 66 16 130/77 (94) 98 03/22/17 14:30 69 20 132/82 (99) 97 03/22/17 14:15 66 18 129/79 (96) 99 03/22/17 14:00 69 10 121/76 (91) 99 Nasal Cannula 2 03/22/17 13:55 98.0 68 10 128/79 (95) 99 Nasal Cannula 2 03/22/17 12:00 96.8 81 17 156/97 (116) 93 03/22/17 08:00 97.3 81 17 129/82 (98) 97 03/22/17 04:00 96.8 79 20 153/80 (104) 97 03/22/17 00:00 96.8 84 20 133/71 (91) 95 03/21/17 23:32 03/21/17 23:00 95 18 124/76 (92) 97 Room Air 03/21/17 19:15 98 18 119/74 (89) 99 Room Air 03/21/17 18:49 99 Room Air 03/21/17 18:49 99 Room Air 03/21/17 17:29 98.7 103 20 137/89 (105) 98 Room Air I/O 03/21/17 03/21/17 03/21/17 03/22/17 03/22/17 03/22/17 07:00 15:00 23:00 07:00 15:00 23:00 Intake Total 1850 ml 100 ml 1668 ml Output Total 900 ml 600 ml Balance 1850 ml -800 ml 1668 ml -600 ml Intake Oral 0 ml IV Total 1850 ml 100 ml 1368 ml Other 300 ml Output Urine Total 900 ml 600 ml # Bowel Movements 0 Result Diagram: 03/22/17 0554 03/22/17 0554 Imaging Last Impressions Chest X-Ray 03/21/17 1715 Signed Impressions: Service Date/Time: Tuesday, March 21, 2017 17:29 - CONCLUSION: No acute disease. There is no evidence of pneumonia. Timothy Goddard MD Foot X-Ray 03/21/17 0000 Signed Impressions: Service Date/Time: Tuesday, March 21, 2017 17:45 - CONCLUSION: Osteomyelitis of the proximal and distal phalanges of the great toe with marked soft tissue swelling and ulceration. Pathologic midshaft fracture with medial angulation deformity of the proximal phalanx. Julius Pedraza MD Aorta w/Runoff CTA 03/21/17 0000 Signed Impressions: Service Date/Time: Tuesday, March 21, 2017 20:57 - CONCLUSION: 1. No significant aortic occlusive disease or iliac inflow stenosis. 2. No significant outflow stenosis although evaluation of the right popliteal artery is somewhat limited due to significantly diminished runoff. 3. Diffusely calcified right lower extremity runoff vessels with likely occluded anterior tibial artery in the proximal calf. The peroneal and posterior tibial arteries are not visualized beyond the mid calf. 4. Diffusely calcified left lower extremity runoff vessels. Anterior tibial artery is diffusely diseased in the proximal to mid calf. Posterior tibial artery is the dominant runoff vessel on the left. There are tandem moderate proximal and severe distal focal posterior tibial artery stenosis. 5. Extensive cellulitis of the left forefoot and osteomyelitis involving the left great toe. 6. Mild sigmoid diverticulosis. Chaitanya Parra MD Objective Remarks General: Elderly male in no acute distress. Heart: Regular rate and rhythm. No murmur. Lungs: Clear to auscultation bilaterally. No wheezes, rales, or rhonchi. Breathing is nonlabored. Abdomen: Soft, nontender, nondistended. Extremities: No right lower extremity edema. Left below-knee amputation. Psych: Alert and oriented. Procedures 03/22/17 left below-knee amputation Urinary Catheter: No Vascular Central Line Catheter: No A/P Problem List: (1) Sepsis ICD Code: A41.9 - Sepsis, unspecified organism Status: Acute (2) Osteomyelitis ICD Code: M86.9 - Osteomyelitis, unspecified Status: Acute (3) Hyponatremia ICD Code: E87.1 - Hypo-osmolality and hyponatremia Status: Acute (4) Hyperglycemia ICD Code: R73.9 - Hyperglycemia, unspecified Status: Acute (5) HTN (hypertension) ICD Code: I10 - Essential (primary) hypertension Status: Chronic Assessment and Plan 1. Sepsis secondary to left foot infection, osteomyelitis: Status post left below-knee amputation. Appreciate podiatry, vascular surgery recommendations. Continue antibiotics. 2. Diabetes mellitus with hyperglycemia: Monitor Accu-Cheks and cover with sliding scale insulin. Home medication medications are on hold. Patient received D5 in his IV fluids overnight. Now switched to normal saline. 3. Hyponatremia: Improving. Continue IV fluids. Monitor labs. 4. Hypertension: Chronic. Continue lisinopril/HCTZ. 5. DVT prophylaxis: Right lower extremity SCD. Problem Qualifiers (1) Sepsis: Qualified Codes: A41.9 - Sepsis, unspecified organism (2) Osteomyelitis: Qualified Codes: M86.8X7 - Other osteomyelitis, ankle and foot Sergio Anderson MD Mar 22, 2017 15:37
[2017-03-22] MEDS: MORPHINE SULFATE 4 MG/ML INJ IV PUSH PRN ×2 (17:06→20:41)
[2017-03-23] VITALS (8 sets, daily range): BP systolic 109–161; BP diastolic 66–91; PULSE 67–80; RESP 18–20; TEMP 95.5–98.7; O2SAT 93–99
[2017-03-23] MEDS: PIPERACIL-TAZO 4.5 GM PREMIX 100 ML IV SCH ×4 (00:13→17:20)
[2017-03-23] MEDS: VANCOMYCIN INJ 1,250 MG in SODIUM CHLOR 0.9% 250 ML INJ 250 ML IV SCH ×2 (05:37→18:36)
[2017-03-23] MEDS: MORPHINE SULFATE 4 MG/ML INJ IV PUSH PRN (05:41)
[2017-03-23] MEDS ORDERED: PHARMACY ORDERED LAB ONE (05:45)
[2017-03-23 08:16] LABS: AUTOMATED NEUTROPHIL # 5.9 TH/MM3 (1.8-7.7); BASOPHIL # 0.1 TH/MM3 (0-0.2); BASOPHIL % 1.5 % (0.0-2.0); EOSINOPHIL # 0.2 TH/MM3 (0-0.4); EOSINOPHIL % 1.9 % (0.0-4.0); HEMATOCRIT 30.2 % (39.0-51.0); HEMO FLAGS DIFF FINAL; LYMPH % 19.7 % (9.0-44.0); LYMPHOCYTE # 1.7 TH/MM3 (1.0-4.8); MEAN CELL VOLUME 82.5 FL (80.0-100.0); MEAN CORPUSCULAR HEMOGLOBIN 28.1 PG (27.0-34.0); MEAN CORPUSCULAR HGB CONC 34.1 % (32.0-36.0); MONO % 7.6 % (0.0-8.0); NEUT % 69.3 % (16.0-70.0); PLATELET COUNT 342 TH/MM3 (150-450); RED BLOOD COUNT 3.66 MIL/MM3 (4.50-5.90); RED CELL DISTRIBUTION WIDTH 13.4 % (11.6-17.2); WHITE BLOOD COUNT 8.5 TH/MM3 (4.0-11.0)
[2017-03-23 08:42] LABS: BICARBONATE 24.8 MEQ/L (21.0-32.0); MAGNESIUM 1.8 MG/DL (1.5-2.5); POTASSIUM 3.7 MEQ/L (3.5-5.1)
[2017-03-23] MEDS: HYDROCHLOROTHIAZIDE 25 MG TAB PO SCH (09:00)
[2017-03-23] MEDS: LISINOPRIL 5 MG TAB PO SCH (09:01)
[2017-03-23] MEDS: ASPIRIN 325 MG TAB PO SCH (09:02)
[2017-03-23] MEDS: SODIUM CHLORIDE 0.9% FLUSH 10 ML FLUSH IV FLUSH SCH ×2 (09:03→21:00)
[2017-03-23] MEDS: INSULIN ASPART SUPPLEMENTAL SCALE SQ SCH ×4 (09:04→21:25)
--- NOTE | 2017-03-23 12:45 | MB ---
cc: KASIA JACOBSON MD DATE OF CONSULTATION: 03/22/[address] Jacobson / vascular surgery REASON FOR CONSULTATION Gangrene of the left foot, diabetes mellitus, sepsis. HISTORY OF PRESENT DISEASE: This 66-year-old male presented to the hospital stating that over the last several weeks he has left forefoot started turning red and then turned black and right now the patient is severe pain. He is not to have severe cellulitis involving the whole foot and extending to the lower leg as well as gangrene of the entire forefoot with draining wounds, and clearly with osteomyelitis. Question arises at which way to go with this. PAST MEDICAL HISTORY: 1. longstanding diabetes mellitus 2. Hypertension 3. Neuropathy 4. Stroke PAST SURGICAL HISTORY: Appendectomy MEDICATIONS: Medications can be found on the record. SOCIAL HISTORY The patient states he does not drink and does not smoke, he use to drink more in the past. PHYSICAL EXAMINATION: IN GENERAL: Physical examination reveals 66-year-old male appearing much older then his actual age. HEAD, EYES, EARS, NOSE, AND THROAT: Normocephalic. No trauma to the head. Pupils equally reactive. Extraocular muscles intact. NECK: The neck is supple, bilateral carotid pulses and bilateral carotid bruits. CHEST: Bilateral breath sounds decreased over both lung richardson consistent with some moderate degree of COPD and some degree of pulmonary cachexia ready noted. HEART: Regular rhythm. The patient is an normotensive send hemodynamically stable. ABDOMEN: Soft. Active bowel sounds. No rebound or guarding, mass. EXTREMITIES: The patient actually has palpable femoral pulses bilateral and dopplerable popliteal pulses bilateral. Distally he is on the right side, weak dorsalis pedis and a little stronger posterior tibial on Doppler. On the left side the patient has no pulses below the level of the popliteal artery which is also weak and the whole foot is swollen with cellulitis streaking up the ankle and gangrene of the forefoot is noted. This is foul-smelling and gangrenous. ASSESSMENT AND PLAN: At this point options are very limited. This patient needs a definite guillotine amputation of the leg to be followed by revision and closure of the below-knee amputation, depending on the situation once I amputate the foot I may due the whole surgery in one session, in operating room, or spread it into two as 1above-noted. Either way the patient needs to go to the operating room on urgent basis, thank you for the referral. Kasia Back /11:21 AM /12:21 PM
[2017-03-23] MEDS: NS + KCL 20 MEQ INJ 1,000 ML IV SCH (13:39)
--- NOTE | 2017-03-23 14:24 | HHI.PR ---
Subjective Remarks Follow-up diabetes, left foot infection. The patient states that his pain is adequately controlled. Denies cough, dyspnea, chest pain, nausea, vomiting. Objective Vitals Vital Signs Date Time Temp Pulse Resp B/P (MAP) Pulse Ox O2 Delivery O2 Flow Rate FiO2 03/23/17 12:00 97.1 78 20 109/79 (89) 99 03/23/17 08:52 93 21 03/23/17 08:00 98.7 71 20 161/91 (114) 95 03/23/17 04:00 96.0 67 20 159/85 (109) 95 03/23/17 00:00 96.7 67 20 137/84 (101) 95 03/22/17 22:19 95 03/22/17 20:00 96.4 69 20 133/82 (99) 96 03/22/17 16:00 95.7 67 18 149/83 (105) 96 03/22/17 15:15 98.0 65 17 134/83 (100) 95 Room Air 03/22/17 15:00 66 16 137/80 (99) 94 03/22/17 14:45 66 16 130/77 (94) 98 03/22/17 14:30 69 20 132/82 (99) 97 I/O 03/22/17 03/22/17 03/22/17 03/23/17 03/23/17 03/23/17 07:00 15:00 23:00 07:00 15:00 23:00 Intake Total 100 ml 1668 ml 240 ml 1583 ml 120 ml Output Total 900 ml 1350 ml 900 ml Balance -800 ml 1668 ml -1110 ml 683 ml 120 ml Intake Oral 0 ml 240 ml 320 ml 120 ml IV Total 100 ml 1368 ml 1263 ml Other 300 ml Output Urine Total 900 ml 1350 ml 900 ml # Bowel Movements 0 0 0 Result Diagram: 03/23/17 0502 03/23/17 0502 Imaging Last Impressions Chest X-Ray 03/21/17 1715 Signed Impressions: Service Date/Time: Tuesday, March 21, 2017 17:29 - CONCLUSION: No acute disease. There is no evidence of pneumonia. Timothy Goddard MD Foot X-Ray 03/21/17 0000 Signed Impressions: Service Date/Time: Tuesday, March 21, 2017 17:45 - CONCLUSION: Osteomyelitis of the proximal and distal phalanges of the great toe with marked soft tissue swelling and ulceration. Pathologic midshaft fracture with medial angulation deformity of the proximal phalanx. Julius Pedraza MD Aorta w/Runoff CTA 03/21/17 0000 Signed Impressions: Service Date/Time: Tuesday, March 21, 2017 20:57 - CONCLUSION: 1. No significant aortic occlusive disease or iliac inflow stenosis. 2. No significant outflow stenosis although evaluation of the right popliteal artery is somewhat limited due to significantly diminished runoff. 3. Diffusely calcified right lower extremity runoff vessels with likely occluded anterior tibial artery in the proximal calf. The peroneal and posterior tibial arteries are not visualized beyond the mid calf. 4. Diffusely calcified left lower extremity runoff vessels. Anterior tibial artery is diffusely diseased in the proximal to mid calf. Posterior tibial artery is the dominant runoff vessel on the left. There are tandem moderate proximal and severe distal focal posterior tibial artery stenosis. 5. Extensive cellulitis of the left forefoot and osteomyelitis involving the left great toe. 6. Mild sigmoid diverticulosis. Chaitanya Parra MD Objective Remarks General: Elderly male in no acute distress. Heart: Regular rate and rhythm. No murmur. Lungs: Clear to auscultation bilaterally. No wheezes, rales, or rhonchi. Breathing is nonlabored. Abdomen: Soft, nontender, nondistended. Extremities: No right lower extremity edema. Left below-knee amputation. Stump bandaged. Psych: Alert and oriented. Procedures 03/22/17 left below-knee amputation Urinary Catheter: No Vascular Central Line Catheter: No A/P Problem List: (1) Sepsis ICD Code: A41.9 - Sepsis, unspecified organism Status: Acute (2) Osteomyelitis ICD Code: M86.9 - Osteomyelitis, unspecified Status: Acute (3) Hyponatremia ICD Code: E87.1 - Hypo-osmolality and hyponatremia Status: Acute (4) Hyperglycemia ICD Code: R73.9 - Hyperglycemia, unspecified Status: Acute (5) HTN (hypertension) ICD Code: I10 - Essential (primary) hypertension Status: Chronic Assessment and Plan 1. Sepsis secondary to left foot infection, osteomyelitis: Status post left below-knee amputation. Appreciate podiatry, vascular surgery recommendations. Continue antibiotics. Wound culture growing gram-negative kaelyn. Blood culture growing gram-positive cocci. 2. Diabetes mellitus with hyperglycemia: Monitor Accu-Cheks and cover with sliding scale insulin. Home medication medications are on hold. Glucose still elevated. 3. Hyponatremia: Improving. Continue IV fluids. Monitor labs. 4. Hypertension: Chronic. Continue lisinopril/HCTZ. 5. DVT prophylaxis: Right lower extremity SCD. Problem Qualifiers (1) Sepsis: Qualified Codes: A41.9 - Sepsis, unspecified organism (2) Osteomyelitis: Qualified Codes: M86.8X7 - Other osteomyelitis, ankle and foot Sergio Anderson MD Mar 23, 2017 14:24
--- NOTE | 2017-03-23 15:22 | PD.CAR.PN ---
CVT Progress Note Subjective/Hospital Course: 66-year-old with long-standing diabetes mellitus and related complications. Now developed gangrene of the left forefoot which has spread over several weeks and is now involving most of the foot and ankle area. Patient has cellulitis redness and purulent drainage His inflow is fairly much adequate however below the level of the knee patient has severely calcified vessels which are occluded for most part and reconstituted in several areas There is no one single vessel to go straight to the foot on either left or right side On physical examination patient has gangrene of the forefoot with cellulitis and drainage of the purulent material. Patient has several areas with crepitations around the ankle consistent with a gas in the tissues and consistent with gas gangrene. At this point patient needs emergent guillotine amputation for a developed systemic sepsis and succumbs to the same Agree with Dr. Gallego the patient needs urgent amputation. Full consult dictated Thanks Geronimo 03/23/17 St post PKA Dressing clean/dry Patient afrebrile Will keep dressed till monday. Objective: Vital Signs Date Time Temp Pulse Resp B/P (MAP) Pulse Ox O2 Delivery O2 Flow Rate FiO2 03/23/17 12:00 97.1 78 20 109/79 (89) 99 03/23/17 08:52 93 21 03/23/17 08:00 98.7 71 20 161/91 (114) 95 03/23/17 04:00 96.0 67 20 159/85 (109) 95 03/23/17 00:00 96.7 67 20 137/84 (101) 95 03/22/17 22:19 95 03/22/17 20:00 96.4 69 20 133/82 (99) 96 03/22/17 16:00 95.7 67 18 149/83 (105) 96 Labs: Laboratory Tests Test 03/23/17 05:02 03/23/17 05:05 White Blood Count 8.5 TH/MM3 (4.0-11.0) Red Blood Count 3.66 MIL/MM3 (4.50-5.90) Hemoglobin 10.3 GM/DL (13.0-17.0) Hematocrit 30.2 % (39.0-51.0) Mean Corpuscular Volume 82.5 FL (80.0-100.0) Mean Corpuscular Hemoglobin 28.1 PG (27.0-34.0) Mean Corpuscular Hemoglobin Concent 34.1 % (32.0-36.0) Red Cell Distribution Width 13.4 % (11.6-17.2) Platelet Count 342 TH/MM3 (150-450) Mean Platelet Volume 6.8 FL (7.0-11.0) Neutrophils (%) (Auto) 69.3 % (16.0-70.0) Lymphocytes (%) (Auto) 19.7 % (9.0-44.0) Monocytes (%) (Auto) 7.6 % (0.0-8.0) Eosinophils (%) (Auto) 1.9 % (0.0-4.0) Basophils (%) (Auto) 1.5 % (0.0-2.0) Neutrophils # (Auto) 5.9 TH/MM3 (1.8-7.7) Lymphocytes # (Auto) 1.7 TH/MM3 (1.0-4.8) Monocytes # (Auto) 0.6 TH/MM3 (0-0.9) Eosinophils # (Auto) 0.2 TH/MM3 (0-0.4) Basophils # (Auto) 0.1 TH/MM3 (0-0.2) CBC Comment DIFF FINAL Differential Comment Blood Urea Nitrogen 10 MG/DL (7-18) Creatinine 0.86 MG/DL (0.60-1.30) Random Glucose 220 MG/DL (74-106) Calcium Level 8.2 MG/DL (8.5-10.1) Magnesium Level 1.8 MG/DL (1.5-2.5) Sodium Level 127 MEQ/L (136-145) Potassium Level 3.7 MEQ/L (3.5-5.1) Chloride Level 94 MEQ/L (98-107) Carbon Dioxide Level 24.8 MEQ/L (21.0-32.0) Anion Gap 8 MEQ/L (5-15) Estimat Glomerular Filtration Rate 90 ML/MIN (>89) Vancomycin Level Trough 14.6 MCG/ML (5.0-10.0) Result Diagram: 03/23/17 0502 03/23/17 0502 Kasia Merida MD Mar 23, 2017 15:22
[2017-03-23] MEDS: glipiZIDE 10 MG TAB PO SCH (18:36)
[2017-03-24] VITALS (7 sets, daily range): BP systolic 140–190; BP diastolic 80–111; PULSE 80–87; RESP 18–19; TEMP 95.6–96.7; O2SAT 96–99
[2017-03-24] MEDS: PIPERACIL-TAZO 4.5 GM PREMIX 100 ML IV SCH ×5 (03:48→23:59)
[2017-03-24] MEDS: NS + KCL 20 MEQ INJ 1,000 ML IV SCH ×2 (03:48→16:48)
[2017-03-24] MEDS: oxyCODONE/ACETAMINOPHEN 5 MG/325 MG TAB PO PRN ×2 (04:58→12:39)
[2017-03-24] MEDS: VANCOMYCIN INJ 1,250 MG in SODIUM CHLOR 0.9% 250 ML INJ 250 ML IV SCH ×2 (04:58→17:43)
[2017-03-24] MEDS: glipiZIDE 10 MG TAB PO SCH ×2 (07:16→16:26)
[2017-03-24 08:25] LABS: AUTOMATED NEUTROPHIL # 6.1 TH/MM3 (1.8-7.7); BASOPHIL % 0.5 % (0.0-2.0); EOSINOPHIL # 0.2 TH/MM3 (0-0.4); EOSINOPHIL % 1.8 % (0.0-4.0); HEMO FLAGS DIFF FINAL; LYMPH % 19.4 % (9.0-44.0); LYMPHOCYTE # 1.7 TH/MM3 (1.0-4.8); MEAN CELL VOLUME 82.2 FL (80.0-100.0); MEAN CORPUSCULAR HEMOGLOBIN 28.3 PG (27.0-34.0); MEAN CORPUSCULAR HGB CONC 34.5 % (32.0-36.0); MONO % 7.7 % (0.0-8.0); NEUT % 70.6 % (16.0-70.0); PLATELET COUNT 345 TH/MM3 (150-450); RED BLOOD COUNT 3.65 MIL/MM3 (4.50-5.90); RED CELL DISTRIBUTION WIDTH 13.4 % (11.6-17.2); WHITE BLOOD COUNT 8.6 TH/MM3 (4.0-11.0)
[2017-03-24 08:39] LABS: BICARBONATE 26.3 MEQ/L (21.0-32.0); POTASSIUM 4.1 MEQ/L (3.5-5.1)
[2017-03-24] MEDS: SODIUM CHLORIDE 0.9% FLUSH 10 ML FLUSH IV FLUSH SCH ×2 (09:00→21:00)
[2017-03-24] MEDS: INSULIN ASPART SUPPLEMENTAL SCALE SQ SCH ×4 (10:01→21:34)
[2017-03-24] MEDS: ASPIRIN 325 MG TAB PO SCH (10:02)
[2017-03-24] MEDS: HYDROCHLOROTHIAZIDE 25 MG TAB PO SCH (10:02)
[2017-03-24] MEDS: LISINOPRIL 5 MG TAB PO SCH (10:02)
--- NOTE | 2017-03-24 14:24 | HHI.PR ---
Subjective Remarks Follow up diabetes, amputation. No complaints at this time. Denies chest pain, dyspnea. Objective Vitals Vital Signs Date Time Temp Pulse Resp B/P (MAP) Pulse Ox O2 Delivery O2 Flow Rate FiO2 03/24/17 12:00 96.2 82 18 170/97 (121) 97 03/24/17 08:37 97 21 03/24/17 08:00 95.9 80 19 175/90 (118) 96 03/24/17 04:00 158/80 (106) 03/24/17 00:00 95.7 80 18 165/98 (120) 97 03/23/17 20:12 78 03/23/17 20:00 95.5 80 18 120/86 (97) 95 03/23/17 16:00 98.7 74 19 138/66 (90) 98 I/O 03/23/17 03/23/17 03/23/17 03/24/17 03/24/17 03/24/17 07:00 15:00 23:00 07:00 15:00 23:00 Intake Total 1583 ml 120 ml 960 ml 800 ml 2250 ml Output Total 900 ml 1800 ml 2400 ml Balance 683 ml 120 ml -840 ml -1600 ml 2250 ml Intake Oral 320 ml 120 ml 960 ml IV Total 1263 ml 800 ml 2250 ml Output Urine Total 900 ml 1800 ml 2400 ml Stool Total 0 ml # Bowel Movements 0 Result Diagram: 03/24/17 0748 03/24/17 0748 Imaging Last Impressions Chest X-Ray 03/21/17 1715 Signed Impressions: Service Date/Time: Tuesday, March 21, 2017 17:29 - CONCLUSION: No acute disease. There is no evidence of pneumonia. Timothy Goddard MD Foot X-Ray 03/21/17 0000 Signed Impressions: Service Date/Time: Tuesday, March 21, 2017 17:45 - CONCLUSION: Osteomyelitis of the proximal and distal phalanges of the great toe with marked soft tissue swelling and ulceration. Pathologic midshaft fracture with medial angulation deformity of the proximal phalanx. Julius Pedraza MD Aorta w/Runoff CTA 03/21/17 0000 Signed Impressions: Service Date/Time: Tuesday, March 21, 2017 20:57 - CONCLUSION: 1. No significant aortic occlusive disease or iliac inflow stenosis. 2. No significant outflow stenosis although evaluation of the right popliteal artery is somewhat limited due to significantly diminished runoff. 3. Diffusely calcified right lower extremity runoff vessels with likely occluded anterior tibial artery in the proximal calf. The peroneal and posterior tibial arteries are not visualized beyond the mid calf. 4. Diffusely calcified left lower extremity runoff vessels. Anterior tibial artery is diffusely diseased in the proximal to mid calf. Posterior tibial artery is the dominant runoff vessel on the left. There are tandem moderate proximal and severe distal focal posterior tibial artery stenosis. 5. Extensive cellulitis of the left forefoot and osteomyelitis involving the left great toe. 6. Mild sigmoid diverticulosis. Chaitanya Parra MD Objective Remarks General: Elderly male in no acute distress. Heart: Regular rate and rhythm. No murmur. Lungs: Clear to auscultation bilaterally. No wheezes, rales, or rhonchi. Breathing is nonlabored. Abdomen: Soft, nontender, nondistended. Extremities: No right lower extremity edema. Left below-knee amputation. Stump bandaged. Psych: Alert and oriented. Procedures 03/22/17 left below-knee amputation Urinary Catheter: No Vascular Central Line Catheter: No A/P Problem List: (1) Sepsis ICD Code: A41.9 - Sepsis, unspecified organism Status: Acute (2) Osteomyelitis ICD Code: M86.9 - Osteomyelitis, unspecified Status: Acute (3) Hyponatremia ICD Code: E87.1 - Hypo-osmolality and hyponatremia Status: Acute (4) Hyperglycemia ICD Code: R73.9 - Hyperglycemia, unspecified Status: Acute (5) HTN (hypertension) ICD Code: I10 - Essential (primary) hypertension Status: Chronic Assessment and Plan 1. Sepsis secondary to left foot infection, osteomyelitis: Status post left below-knee amputation. Appreciate podiatry, vascular surgery recommendations. Continue antibiotics. Wound culture growing gram-negative kaelyn. Blood culture growing Providencia Stuartii, Pseudomonas, & anaerobic gram negative kaelyn. Consult infectious disease. Dressing to be changed by surgery tomorrow. No active signs of infection at this time. 2. Diabetes mellitus with hyperglycemia: Monitor Accu-Cheks and cover with sliding scale insulin. Continue Glipizide. Glucose still elevated. Add Levemir. 3. Hyponatremia: Improving. Continue IV fluids. Monitor labs. 4. Hypertension: Chronic. Continue lisinopril/HCTZ. 5. DVT prophylaxis: Right lower extremity SCD. Problem Qualifiers (1) Sepsis: Qualified Codes: A41.9 - Sepsis, unspecified organism (2) Osteomyelitis: Qualified Codes: M86.8X7 - Other osteomyelitis, ankle and foot Sergio Anderson MD Mar 24, 2017 14:24
--- NOTE | 2017-03-24 14:40 | PD.CAR.PN ---
CVT Progress Note Subjective/Hospital Course: 66-year-old with long-standing diabetes mellitus and related complications. Now developed gangrene of the left forefoot which has spread over several weeks and is now involving most of the foot and ankle area. Patient has cellulitis redness and purulent drainage His inflow is fairly much adequate however below the level of the knee patient has severely calcified vessels which are occluded for most part and reconstituted in several areas There is no one single vessel to go straight to the foot on either left or right side On physical examination patient has gangrene of the forefoot with cellulitis and drainage of the purulent material. Patient has several areas with crepitations around the ankle consistent with a gas in the tissues and consistent with gas gangrene. At this point patient needs emergent guillotine amputation for a developed systemic sepsis and succumbs to the same Agree with Dr. Gallego the patient needs urgent amputation. Full consult dictated Thanks Geronimo 03/23/17 post PKA Dressing clean/dry Patient afrebrile Will keep dressed till monday. 03/24/17 Dressing removed Stump dry and nicely perfused Healing well Stitches will stay in for about 3 weeks total Objective: Vital Signs Date Time Temp Pulse Resp B/P (MAP) Pulse Ox O2 Delivery O2 Flow Rate FiO2 03/24/17 12:00 96.2 82 18 170/97 (121) 97 03/24/17 08:37 97 21 03/24/17 08:00 95.9 80 19 175/90 (118) 96 03/24/17 04:00 158/80 (106) 03/24/17 00:00 95.7 80 18 165/98 (120) 97 03/23/17 20:12 78 03/23/17 20:00 95.5 80 18 120/86 (97) 95 03/23/17 16:00 98.7 74 19 138/66 (90) 98 Labs: Laboratory Tests Test 03/24/17 07:48 White Blood Count 8.6 TH/MM3 (4.0-11.0) Red Blood Count 3.65 MIL/MM3 (4.50-5.90) Hemoglobin 10.3 GM/DL (13.0-17.0) Hematocrit 30.0 % (39.0-51.0) Mean Corpuscular Volume 82.2 FL (80.0-100.0) Mean Corpuscular Hemoglobin 28.3 PG (27.0-34.0) Mean Corpuscular Hemoglobin Concent 34.5 % (32.0-36.0) Red Cell Distribution Width 13.4 % (11.6-17.2) Platelet Count 345 TH/MM3 (150-450) Mean Platelet Volume 6.3 FL (7.0-11.0) Neutrophils (%) (Auto) 70.6 % (16.0-70.0) Lymphocytes (%) (Auto) 19.4 % (9.0-44.0) Monocytes (%) (Auto) 7.7 % (0.0-8.0) Eosinophils (%) (Auto) 1.8 % (0.0-4.0) Basophils (%) (Auto) 0.5 % (0.0-2.0) Neutrophils # (Auto) 6.1 TH/MM3 (1.8-7.7) Lymphocytes # (Auto) 1.7 TH/MM3 (1.0-4.8) Monocytes # (Auto) 0.7 TH/MM3 (0-0.9) Eosinophils # (Auto) 0.2 TH/MM3 (0-0.4) Basophils # (Auto) 0.0 TH/MM3 (0-0.2) CBC Comment DIFF FINAL Differential Comment Blood Urea Nitrogen 11 MG/DL (7-18) Creatinine 0.84 MG/DL (0.60-1.30) Random Glucose 242 MG/DL (74-106) Calcium Level 8.3 MG/DL (8.5-10.1) Sodium Level 129 MEQ/L (136-145) Potassium Level 4.1 MEQ/L (3.5-5.1) Chloride Level 95 MEQ/L (98-107) Carbon Dioxide Level 26.3 MEQ/L (21.0-32.0) Anion Gap 8 MEQ/L (5-15) Estimat Glomerular Filtration Rate 92 ML/MIN (>89) Result Diagram: 03/24/17 0748 03/24/17 0748 Kasia Merida MD Mar 24, 2017 14:40
[2017-03-24] MEDS ORDERED: PHARMACY ORDERED LAB ONE (17:45)
[2017-03-24] MEDS: INSULIN DETEMIR 100 UNITS/ML VIAL SQ SCH (21:34)
[2017-03-25] VITALS: BP 188/108; PULSE 86; RESP 18; TEMP 95.4; O2SAT 97
[2017-03-25] MEDS: VANCOMYCIN INJ 1,250 MG in SODIUM CHLOR 0.9% 250 ML INJ 250 ML IV SCH (04:47)
[2017-03-25] MEDS: PIPERACIL-TAZO 4.5 GM PREMIX 100 ML IV SCH ×2 (04:47→12:50)
[2017-03-25 04:52] LABS: AUTOMATED NEUTROPHIL # 7.9 TH/MM3 (1.8-7.7); BASOPHIL # 0.1 TH/MM3 (0-0.2); BASOPHIL % 0.6 % (0.0-2.0); EOSINOPHIL # 0.2 TH/MM3 (0-0.4); EOSINOPHIL % 1.7 % (0.0-4.0); HEMATOCRIT 31.6 % (39.0-51.0); HEMO FLAGS DIFF FINAL; LYMPH % 21.5 % (9.0-44.0); LYMPHOCYTE # 2.5 TH/MM3 (1.0-4.8); MEAN CELL VOLUME 83.3 FL (80.0-100.0); MEAN CORPUSCULAR HEMOGLOBIN 28.6 PG (27.0-34.0); MEAN CORPUSCULAR HGB CONC 34.3 % (32.0-36.0); MONO % 8.1 % (0.0-8.0); NEUT % 68.1 % (16.0-70.0); PLATELET COUNT 412 TH/MM3 (150-450); RED CELL DISTRIBUTION WIDTH 13.5 % (11.6-17.2); WHITE BLOOD COUNT 11.6 TH/MM3 (4.0-11.0)
[2017-03-25 05:13] LABS: BICARBONATE 23.3 MEQ/L (21.0-32.0); POTASSIUM 3.8 MEQ/L (3.5-5.1)
[2017-03-25] MEDS: NS + KCL 20 MEQ INJ 1,000 ML IV SCH (07:10)
[2017-03-25] MEDS: glipiZIDE 10 MG TAB PO SCH ×2 (07:10→17:04)
[2017-03-25 08:00] VITALS: BP 175/108; PULSE 86; RESP 17; TEMP 95.7; O2SAT 97
[2017-03-25] MEDS: SODIUM CHLORIDE 0.9% FLUSH 10 ML FLUSH IV FLUSH SCH ×2 (09:00→20:40)
[2017-03-25] MEDS: INSULIN DETEMIR 100 UNITS/ML VIAL SQ SCH ×2 (09:17→20:39)
[2017-03-25] MEDS: INSULIN ASPART SUPPLEMENTAL SCALE SQ SCH ×4 (09:17→20:40)
[2017-03-25] MEDS: LISINOPRIL 5 MG TAB PO SCH (09:18)
[2017-03-25] MEDS: HYDROCHLOROTHIAZIDE 25 MG TAB PO SCH (09:18)
[2017-03-25] MEDS: ASPIRIN 325 MG TAB PO SCH (09:18)
[2017-03-25] MEDS: ONDANSETRON HCL 4 MG/2 ML VIAL IV PUSH PRN (09:28)
[2017-03-25 12:00] VITALS: BP 128/87; PULSE 84; RESP 17; TEMP 95.6; O2SAT 97
--- NOTE | 2017-03-25 12:21 | PD.CAR.PN ---
CVT Progress Note Subjective/Hospital Course: 66-year-old with long-standing diabetes mellitus and related complications. Now developed gangrene of the left forefoot which has spread over several weeks and is now involving most of the foot and ankle area. Patient has cellulitis redness and purulent drainage His inflow is fairly much adequate however below the level of the knee patient has severely calcified vessels which are occluded for most part and reconstituted in several areas There is no one single vessel to go straight to the foot on either left or right side On physical examination patient has gangrene of the forefoot with cellulitis and drainage of the purulent material. Patient has several areas with crepitations around the ankle consistent with a gas in the tissues and consistent with gas gangrene. At this point patient needs emergent guillotine amputation for a developed systemic sepsis and succumbs to the same Agree with Dr. Gallego the patient needs urgent amputation. Full consult dictated Thanks Geronimo 03/23/17 St post PKA Dressing clean/dry Patient afrebrile Will keep dressed till monday. 03/24/17 Dressing removed Stump dry and nicely perfused Healing well Stitches will stay in for about 3 weeks total 03/25/17 Stump clean and dry And very nicely no drainage Patient can be discharged from my point any time and stitches will remain in place for the next 3 weeks Follow-up with my office in about 3 weeks Objective: Vital Signs Date Time Temp Pulse Resp B/P (MAP) Pulse Ox O2 Delivery O2 Flow Rate FiO2 03/25/17 08:00 95.7 86 17 175/108 (130) 97 03/25/17 00:00 95.4 86 18 188/108 (134) 97 03/24/17 20:00 95.6 87 18 190/111 (137) 98 03/24/17 16:00 96.7 86 18 140/98 (112) 99 Labs: Laboratory Tests Test 03/25/17 04:08 White Blood Count 11.6 TH/MM3 (4.0-11.0) Red Blood Count 3.80 MIL/MM3 (4.50-5.90) Hemoglobin 10.9 GM/DL (13.0-17.0) Hematocrit 31.6 % (39.0-51.0) Mean Corpuscular Volume 83.3 FL (80.0-100.0) Mean Corpuscular Hemoglobin 28.6 PG (27.0-34.0) Mean Corpuscular Hemoglobin Concent 34.3 % (32.0-36.0) Red Cell Distribution Width 13.5 % (11.6-17.2) Platelet Count 412 TH/MM3 (150-450) Mean Platelet Volume 6.7 FL (7.0-11.0) Neutrophils (%) (Auto) 68.1 % (16.0-70.0) Lymphocytes (%) (Auto) 21.5 % (9.0-44.0) Monocytes (%) (Auto) 8.1 % (0.0-8.0) Eosinophils (%) (Auto) 1.7 % (0.0-4.0) Basophils (%) (Auto) 0.6 % (0.0-2.0) Neutrophils # (Auto) 7.9 TH/MM3 (1.8-7.7) Lymphocytes # (Auto) 2.5 TH/MM3 (1.0-4.8) Monocytes # (Auto) 0.9 TH/MM3 (0-0.9) Eosinophils # (Auto) 0.2 TH/MM3 (0-0.4) Basophils # (Auto) 0.1 TH/MM3 (0-0.2) CBC Comment DIFF FINAL Differential Comment Blood Urea Nitrogen 12 MG/DL (7-18) Creatinine 1.00 MG/DL (0.60-1.30) Random Glucose 250 MG/DL (74-106) Calcium Level 8.6 MG/DL (8.5-10.1) Sodium Level 131 MEQ/L (136-145) Potassium Level 3.8 MEQ/L (3.5-5.1) Chloride Level 97 MEQ/L (98-107) Carbon Dioxide Level 23.3 MEQ/L (21.0-32.0) Anion Gap 11 MEQ/L (5-15) Estimat Glomerular Filtration Rate 75 ML/MIN (>89) Result Diagram: 03/25/178 03/25/17 0408 Kasia Merida MD Mar 25, 2017 12:21
[2017-03-25 16:00] VITALS: BP 153/99; PULSE 80; RESP 17; TEMP 95.9; O2SAT 93
--- NOTE | 2017-03-25 16:27 | HHI.PR ---
Subjective Remarks Patient seen this morning around 11 AM. Says he is feeling all right. Denies any chest pain or shortness of breath. Reports pain is controlled. Does not feel he go home. Objective Vital Signs Date Time Temp Pulse Resp B/P (MAP) Pulse Ox O2 Delivery O2 Flow Rate FiO2 03/25/17 12:00 95.6 84 17 128/87 (101) 97 03/25/17 08:00 95.7 86 17 175/108 (130) 97 03/25/17 00:00 95.4 86 18 188/108 (134) 97 03/24/17 20:00 95.6 87 18 190/111 (137) 98 I/O 03/24/17 03/24/17 03/24/17 03/25/17 03/25/17 03/25/17 07:00 15:00 23:00 07:00 15:00 23:00 Intake Total 800 ml 2250 ml 720 ml 490 ml Output Total 2400 ml 1600 ml 1450 ml Balance -1600 ml 2250 ml -880 ml -960 ml Intake Oral 720 ml 240 ml IV Total 800 ml 2250 ml 250 ml Output Urine Total 2400 ml 1600 ml 1450 ml # Bowel Movements 0 1 Result Diagram: 03/25/17 0408 03/25/17407 Objective Remarks GENERAL: Sitting up in bed. Appears comfortable. Alert and oriented 3. SKIN: Warm and dry. HEAD: Normocephalic. EYES: No scleral icterus. No injection or drainage. NECK: Supple, trachea midline. No JVD. CARDIOVASCULAR: Regular rate and rhythm without murmurs, gallops, or rubs. RESPIRATORY: Breath sounds equal bilaterally. No accessory muscle use. GASTROINTESTINAL: Abdomen soft, non-tender, nondistended. MUSCULOSKELETAL: No cyanosis, or edema. Left lower extremity application. Incision clean dry and intact. BACK: Nontender without obvious deformity. No CVA tenderness. A/P Assessment and Plan =====03/25/17 Hyperglycemia. Sugars in the 290s. //Sepsis secondary to left foot infection, osteomyelitis: Status post left below -knee amputation. Appreciate podiatry, vascular surgery recommendations. Continue antibiotics. Wound culture growing gram-negative kaelyn. Blood culture growing Providencia Stuartii, Pseudomonas, & anaerobic gram negative kaelyn. -Infectious disease following. No need for continued antibiotic status post amputation. Appreciate assistance. // Diabetes mellitus with hyperglycemia: Monitor Accu-Cheks and cover with sliding scale insulin. Continue Glipizide. Glucose still elevated. -A1c 8.4 on admission -Continue Levemir, glipizide, low NovoLog scale.. -03/25. Sugars in the 290s. Decreased diabetic diet to 1800 irene. Consult [employer]. Increase Levemir. // Hyponatremia: Improved. discontinue IV fluids. Monitor labs. //Hypertension: Chronic. Blood pressure acceptable. Continue lisinopril/HCTZ. // DVT prophylaxis: Right lower extremity SCD. Discharge Planning Discharge to SNF. Zac Sharpe MD Mar 25, 2017 16:27
[2017-03-25] MEDS ORDERED: LEVEMIR SQ (16:32)
[2017-03-25] MEDS ORDERED: NOVOLOGSS SQ (16:32)
[2017-03-25] MEDS ORDERED: LISI2.5T3 PO (16:32)
[2017-03-25] MEDS ORDERED: NIFE30TA61 PO (16:32)
--- NOTE | 2017-03-25 17:24 | MP ---
cc: MD INDIRA,KASIA DATE OF SURGERY: 03/22/2017. PREOPERATIVE DIAGNOSIS: Gangrene of the left foot and cellulitis of the leg, left osteomyelitis, peripheral vascular disease, occlusion of flow to the left foot. POSTOPERATIVE DIAGNOSIS: Gangrene of the left foot and cellulitis of the leg, left osteomyelitis, peripheral vascular disease, occlusion of flow to the left foot. OPERATION: Left below-knee amputation. SURGEON: Kasia Merida M.D. ANESTHESIA: General. ESTIMATED BLOOD LOSS: 150 mL. DESCRIPTION OF THE PROCEDURE IN DETAIL: The patient was prepped and draped in the usual fashion and delineation of the incision was made with a string indentation and then the incision was made anteriorly with a 10 blade across the tibia and down laterally delineating the posterior flap. Then the incision was deepened with a cautery. The anterior tibial artery and vein were clamped, divided and ligated with 2-0 Vicryl stick ties. The fibula was exposed laterally and medially. The gastrocnemius muscle was transected as were the extensors. A periosteal elevator was used to elevate the periosteum about 2 inches above the level of the incision on the tibia and fibula and then both were transected with an oscillating saw. A thigh tourniquet was now inflated and then a posterior flap created with an amputation knife and specimen removed. The vessels were now ligated with #0 Vicryl stick ties [id number] and then the tourniquet was released about four minutes later. Minor bleeding was now controlled with cautery and small stick ties and the posterior flap was observed. At the time of consultation, I was not sure whether I was going to do an amputation and leave it open or close it immediately depending on the situation. However, at this point after the area was washed out, the bone appeared to be clean. There was no sign of infection proximally and therefore the decision was made to do a one-stage amputation. At this point, wound VAC. The tibia was therefore now cut at an angle with an oscillating saw removing the sharp anterior end and then everything was smoothed out with a rasp. The anterior tibial nerve was cut and allowed to retract. The posterior flap was now tailored and then flipped forward. The incision was now closed deep stitches #0 Vicryl deep [id number] fascia, superficial [id number] fascia and the skin was closed with 2-0 Prolene interrupted stitches. Dressing applied. The patient tolerated the procedure well. Kasia RINCON/KIRK /11:26 AM /5:13 PM
[2017-03-25 19:43] VITALS: BP 163/80; PULSE 86; RESP 20; TEMP 96.7; O2SAT 97
[2017-03-25 19:50] LABS: INDIRECT BILIRUBIN 0.2 MG/DL (0.0-0.8); TOTAL BILIRUBIN ADULT 0.5 MG/DL (0.2-1.0)
[2017-03-25] MEDS ORDERED: INSULIN DETEMIR 100 UNITS/ML VIAL SQ SCH (21:00)
[2017-03-25] MEDS ORDERED: TEMAZEPAM 7.5 MG CAP PO PRN (21:30)
[2017-03-26 00:39] VITALS: BP 125/82; PULSE 86; RESP 18; TEMP 98.3; O2SAT 96
[2017-03-26 04:46] VITALS: BP 169/86; PULSE 80; RESP 18; TEMP 96.7; O2SAT 92
[2017-03-26 08:00] VITALS: BP 148/95; PULSE 88; RESP 16; TEMP 98.1; O2SAT 96
[2017-03-26] MEDS: INSULIN ASPART SUPPLEMENTAL SCALE SQ SCH ×4 (08:00→21:00)
[2017-03-26] MEDS: LISINOPRIL 5 MG TAB PO SCH (08:37)
[2017-03-26] MEDS: HYDROCHLOROTHIAZIDE 25 MG TAB PO SCH (08:38)
[2017-03-26] MEDS: glipiZIDE 10 MG TAB PO SCH ×2 (08:38→16:02)
[2017-03-26] MEDS: ASPIRIN 325 MG TAB PO SCH (08:38)
[2017-03-26] MEDS: INSULIN DETEMIR 100 UNITS/ML VIAL SQ SCH ×2 (08:39→21:00)
[2017-03-26] MEDS: SODIUM CHLORIDE 0.9% FLUSH 10 ML FLUSH IV FLUSH SCH ×2 (09:00→20:41)
[2017-03-26 12:00] VITALS: BP 138/92; PULSE 85; RESP 18; TEMP 96.1; O2SAT 96
[2017-03-26] MEDS: ONDANSETRON HCL 4 MG/2 ML VIAL IV PUSH PRN (13:03)
[2017-03-26 16:00] VITALS: BP 132/82; PULSE 87; RESP 18; TEMP 96.5; O2SAT 99
--- NOTE | 2017-03-26 16:38 | HHI.PR ---
Subjective Remarks Dizziness morning. Says he feels all right. Denies any chest pain or shortness of breath. Reports pain is controlled Objective Vital Signs Date Time Temp Pulse Resp B/P (MAP) Pulse Ox O2 Delivery O2 Flow Rate FiO2 03/26/17 12:00 96.1 85 18 138/92 (107) 96 03/26/17 08:00 98.1 88 16 148/95 (112) 96 03/26/17 04:46 96.7 80 18 169/86 (113) 92 03/26/17 00:39 98.3 86 18 125/82 (96) 96 03/25/17 19:43 96.7 86 20 163/80 (107) 97 I/O 03/25/17 03/25/17 03/25/17 03/26/17 03/26/17 03/26/17 07:00 15:00 23:00 07:00 15:00 23:00 Intake Total 490 ml 480 ml Output Total 1450 ml 1740 ml 875 ml Balance -960 ml -1260 ml -875 ml Intake Oral 240 ml 480 ml IV Total 250 ml Output Urine Total 1450 ml 1740 ml 875 ml # Bowel Movements 1 0 Result Diagram: 03/25/17 0408 03/25/17 0408 Objective Remarks GENERAL: Sitting up in bed. Appears comfortable. Alert and oriented 3. No change on exam today. SKIN: Warm and dry. HEAD: Normocephalic. EYES: No scleral icterus. No injection or drainage. NECK: Supple, trachea midline. No JVD. CARDIOVASCULAR: Regular rate and rhythm without murmurs, gallops, or rubs. RESPIRATORY: Breath sounds equal bilaterally. No accessory muscle use. GASTROINTESTINAL: Abdomen soft, non-tender, nondistended. MUSCULOSKELETAL: No cyanosis, or edema. Left lower extremity application. Incision clean dry and intact. BACK: Nontender without obvious deformity. No CVA tenderness. A/P Assessment and Plan =====03/26/17 //Hyperglycemia. Sugars improved today. Continue current dose of Levemir, diabetic sinus scale, 1800-calorie diabetic diet. //Left below the knee amputation. Incision clean dry and intact. //Chest with case management. Awaiting insurance to approve SNF.. //Sepsis secondary to left foot infection, osteomyelitis: Status post left below -knee amputation. Appreciate podiatry, vascular surgery recommendations. Continue antibiotics. Wound culture growing gram-negative kaelyn. Blood culture growing Providencia Stuartii, Pseudomonas, & anaerobic gram negative kaelyn. -Infectious disease following. No need for continued antibiotic status post amputation. Appreciate assistance. // Diabetes mellitus with hyperglycemia: Monitor Accu-Cheks and cover with sliding scale insulin. Continue Glipizide. Glucose still elevated. -A1c 8.4 on admission -Continue Levemir, glipizide, low NovoLog scale.. -03/25. Sugars in the 290s. Decreased diabetic diet to 1800 irene. Consult nurses educator. Increase Levemir. // Hyponatremia: Improved. discontinue IV fluids. Monitor labs. //Hypertension: Chronic. Blood pressure acceptable. Continue lisinopril/HCTZ. // DVT prophylaxis: Right lower extremity SCD. Discharge Planning Discharge to SNF. Zac Sharpe MD Mar 26, 2017 16:38
[2017-03-26 19:47] VITALS: BP 124/83; PULSE 82; RESP 18; TEMP 97.4; O2SAT 97
[2017-03-27] VITALS: BP 122/80; PULSE 84; RESP 18; TEMP 96.5; O2SAT 96
[2017-03-27] MEDS ORDERED: PHARMACY ORDERED LAB ONE (05:45)
[2017-03-27 08:00] VITALS: BP 115/56; PULSE 85; RESP 18; TEMP 97.6; O2SAT 95
[2017-03-27] MEDS: glipiZIDE 10 MG TAB PO SCH (08:38)
[2017-03-27] MEDS: LISINOPRIL 5 MG TAB PO SCH (08:38)
[2017-03-27] MEDS: HYDROCHLOROTHIAZIDE 25 MG TAB PO SCH (08:39)
[2017-03-27] MEDS: INSULIN ASPART SUPPLEMENTAL SCALE SQ SCH ×2 (08:41→12:57)
[2017-03-27] MEDS: INSULIN DETEMIR 100 UNITS/ML VIAL SQ SCH (08:41)
[2017-03-27] MEDS: SODIUM CHLORIDE 0.9% FLUSH 10 ML FLUSH IV FLUSH SCH (08:42)
[2017-03-27] MEDS: ASPIRIN 325 MG TAB PO SCH (08:42)
[2017-03-27 12:00] VITALS: BP 105/69; PULSE 83; RESP 17; TEMP 96.2; O2SAT 95
[2017-03-27] MEDS ORDERED: DOCUSATE SODIUM 50 MG/SENNA 8.6 MG TAB PO ONE (15:30)
[2017-03-27] MEDS ORDERED: MAGNESIUM HYDROXIDE SUSP 30 ML CUP PO ONE (15:30)
[2017-03-27 16:00] VITALS: BP 116/60; PULSE 85; RESP 16; TEMP 97.3; O2SAT 96
--- NOTE | 2017-03-27 18:44 | HHI.DS ---
Discharge Summary Admission Date Mar 21, 2017 at 20:28 Discharge Date: Mar 27, 2017 Admitting Diagnosis osteomyelitis, hyponatremia (1) Sepsis ICD Code: A41.9 - Sepsis, unspecified organism Status: Acute (2) Osteomyelitis ICD Code: M86.9 - Osteomyelitis, unspecified Status: Acute (3) Hyponatremia ICD Code: E87.1 - Hypo-osmolality and hyponatremia Status: Acute (4) Hyperglycemia ICD Code: R73.9 - Hyperglycemia, unspecified Status: Acute (5) HTN (hypertension) ICD Code: I10 - Essential (primary) hypertension Status: Chronic Procedures 03/22/17 left below-knee amputation Brief History - From Admission 66-year-old male with a history of diabetes, hyperlipidemia, hypertension, neuropathy and CVA presented to the ED with a left foot wound for the past 2 weeks. Patient states it's been foul-smelling with purulent drainage for the last 2 weeks, he has not seen a doctor and was using [id number] antibacterial ointment, and applying a clean sock daily for treatment. He states it has been about 2 years since he has been on insulin and he has been controlled with his DM. He denies any fever or chills. He denies any pain to the foot, but states he doesn't feel much with his neuropathy. Also denies any chest pain, sob, nausea or vomiting. PCP is Dr. Loja CBC/BMP: 03/25/17 0408 03/25/17 0408 Significant Findings Laboratory Tests Test 03/25/17 04:08 03/27/17 05:45 White Blood Count 11.6 TH/MM3 (4.0-11.0) Red Blood Count 3.80 MIL/MM3 (4.50-5.90) Hemoglobin 10.9 GM/DL (13.0-17.0) Hematocrit 31.6 % (39.0-51.0) Mean Platelet Volume 6.7 FL (7.0-11.0) Monocytes (%) (Auto) 8.1 % (0.0-8.0) Neutrophils # (Auto) 7.9 TH/MM3 (1.8-7.7) Random Glucose 250 MG/DL (74-106) Sodium Level 131 MEQ/L (136-145) Chloride Level 97 MEQ/L (98-107) Estimat Glomerular Filtration Rate 75 ML/MIN (>89) Direct Bilirubin 0.3 MG/DL (0.0-0.2) Alkaline Phosphatase 120 U/L (45-117) Albumin 2.2 GM/DL (3.4-5.0) Imaging Last Impressions Chest X-Ray 03/21/17 1715 Signed Impressions: Service Date/Time: Tuesday, March 21, 2017 17:29 - CONCLUSION: No acute disease. There is no evidence of pneumonia. Timothy Goddard MD Foot X-Ray 03/21/17 0000 Signed Impressions: Service Date/Time: Tuesday, March 21, 2017 17:45 - CONCLUSION: Osteomyelitis of the proximal and distal phalanges of the great toe with marked soft tissue swelling and ulceration. Pathologic midshaft fracture with medial angulation deformity of the proximal phalanx. Julius Pedraza MD Aorta w/Runoff CTA 03/21/17 0000 Signed Impressions: Service Date/Time: Tuesday, March 21, 2017 20:57 - CONCLUSION: 1. No significant aortic occlusive disease or iliac inflow stenosis. 2. No significant outflow stenosis although evaluation of the right popliteal artery is somewhat limited due to significantly diminished runoff. 3. Diffusely calcified right lower extremity runoff vessels with likely occluded anterior tibial artery in the proximal calf. The peroneal and posterior tibial arteries are not visualized beyond the mid calf. 4. Diffusely calcified left lower extremity runoff vessels. Anterior tibial artery is diffusely diseased in the proximal to mid calf. Posterior tibial artery is the dominant runoff vessel on the left. There are tandem moderate proximal and severe distal focal posterior tibial artery stenosis. 5. Extensive cellulitis of the left forefoot and osteomyelitis involving the left great toe. 6. Mild sigmoid diverticulosis. Chaitanya Parra MD PE at Discharge GENERAL: sitting up in bed. Appears comfortable. SKIN: Warm and dry. HEAD: Normocephalic. EYES: No scleral icterus. No injection or drainage. NECK: Supple, trachea midline. No JVD or lymphadenopathy. CARDIOVASCULAR: Regular rate and rhythm without murmurs, gallops, or rubs. RESPIRATORY: Breath sounds equal bilaterally. No accessory muscle use. GASTROINTESTINAL: Abdomen soft, non-tender, nondistended. MUSCULOSKELETAL: No cyanosis, or edema. Left-sided below the knee amputation. Dressing clean dry and intact. BACK: Nontender without obvious deformity. No CVA tenderness. Pt update on day of discharge patient seen this morning around 10 AM. Denies any chest pain or shortness breath.reports the pain is under control. Hospital Course Patient presented with sepsis secondary to left foot infection. Infectious diseases consult that, patient was treated with broad-spectrum antibiotics. Vascular surgery was consult at. Imaging as above. This patient underwent left sided below the knee amputation. No further requirement for antibiotics. Patient was found to have elevated blood pressure during admission, and medications were adjusted. Patient was also found to have hyperglycemia during admission, and will be sent home on increased dose of insulin. Patient will need a follow-up with vascular surgery in 2 weeks for removal of sutures. For probably summary for most recent progress note, please see below. =====03/26/17 //Hyperglycemia. Sugars improved today. Continue current dose of Levemir, diabetic sinus scale, 1800-calorie diabetic diet. //Left below the knee amputation. Incision clean dry and intact. //Chest with case management. Awaiting insurance to approve SNF.. //Sepsis secondary to left foot infection, osteomyelitis: Status post left below -knee amputation. Appreciate podiatry, vascular surgery recommendations. Continue antibiotics. Wound culture growing gram-negative kaelyn. Blood culture growing Providencia Stuartii, Pseudomonas, & anaerobic gram negative kaelyn. -Infectious disease following. No need for continued antibiotic status post amputation. Appreciate assistance. // Diabetes mellitus with hyperglycemia: Monitor Accu-Cheks and cover with sliding scale insulin. Continue Glipizide. Glucose still elevated. -A1c 8.4 on admission -Continue Levemir, glipizide, low NovoLog scale.. -03/25. Sugars in the 290s. Decreased diabetic diet to 1800 irene. Consult software educator. Increase Levemir. // Hyponatremia: Improved. discontinue IV fluids. Monitor labs. //Hypertension: Chronic. Blood pressure acceptable. Continue lisinopril/HCTZ. // DVT prophylaxis: Right lower extremity SCD. Discharge Planning Discharge to SNF. Pt Condition on Discharge: Good Discharge Disposition: Discharge to SNF Discharge Time: > 30 minutes Discharge Instructions DIET: Follow Instructions for: Diabetic Diet Activities you can perform: Regular-No Restrictions New Medications: Lisinopril (Lisinopril) 2.5 Mg Tab 2.5 MG PO DAILY, #30 TAB 0 Refills Nifedipine ER 24 HR (Nifedipine ER 24 HR) 30 Mg Tab 30 MG PO DAILY for Blood Pressure Management, #30 TAB 0 Refills Insulin Aspart Inj (Novolog Inj) 100 Unit/Ml Inj 1 INJECTION SQ ACHS SLIDING SCALE for Blood Sugar Management for 30 Days, INJECTION Insulin Detemir Inj (Levemir Inj) 1,000 unit/ 10 ML Vial 10 UNITS SQ Q12HR for Blood Sugar Management for 30 Days, INJECTION Do not mix with any other Insulin. Continued Medications: Aspirin (Aspirin) 325 Mg Tab 325 MG PO DAILY, #30 TAB 0 Refills Glipizide (Glipizide) 10 Mg Tab 10 MG PO BIDAC for Blood Sugar Management, #60 TAB 0 Refills Take 30 minutes before a meal Discontinued Medications: Lisinopril-Hctz (Lisinopril-Hctz) 10-12.5 Mg Tab 0.5 TAB PO DAILY for Blood Pressure Management, #30 TAB 0 Refills Zac Sharpe MD Mar 27, 2017 18:44
== END 2017-03-27 17:32 | DRG 854 ==
LOC: NEPE 13:06 → NEDA 20:28 → N07A 23:35
PROVIDERS: ADMIT Internal Medicine; ATTEND Internal Medicine
PROC: 0Y6J0Z2 Detachment at Left Lower Leg, Mid, Open Approach (ICD-10-PCS; principal; 2017-03-22 12:21)
DX: A41.9 Sepsis, unspecified organism (principal); E11.52 Type 2 diabetes mellitus with diabetic peripheral angiopathy with gangrene; E11.42 Type 2 diabetes mellitus with diabetic polyneuropathy; E87.1 Hypo-osmolality and hyponatremia; M86.172 Other acute osteomyelitis, left ankle and foot; L03.116 Cellulitis of left lower limb; L97.424 Non-pressure chronic ulcer of left heel and midfoot with necrosis of bone; E11.621 Type 2 diabetes mellitus with foot ulcer; E11.65 Type 2 diabetes mellitus with hyperglycemia; E78.5 Hyperlipidemia, unspecified; L97.529 Non-pressure chronic ulcer of other part of left foot with unspecified severity; I10 Essential (primary) hypertension; E11.69 Type 2 diabetes mellitus with other specified complication; Z86.73 Personal history of transient ischemic attack (TIA), and cerebral infarction without residual deficits; Z79.4 Long term (current) use of insulin
CPT/HCPCS: 71010; 73630; 75635; 80048; 80053; 80076; 80202; 81001; 82948; 83036; 83605; 83735; 85025; 87040; 87070; 87077; 87185; 87186; 87205; 88307; 88311; 96365; 96366; 96368; J1815; J2250; J2270; J2370; J2405; J2543; J2710; J3010; J3370; J3480; J7030; J7040; J7050; Q9967